=== PATIENT | female | born 1970 | race African-American/Black ===

== ENCOUNTER 2017-07-07 19:50 | Inpatient (IN) | payer OTHER ==
--- NOTE | 2017-07-07 19:57 | HP ---
COWS - Scale Resting Pulse: 0= [place] 80 or Below Sweatin=Flushed/Facial Moisture Restless Observation: 3= Extraneous Movement Pupil Size: 2= Moderately Dilated Bone or Joint Aches: 2= Severe Diffuse Aches Runny Nose/ Eye Tearin= Runny Nose/Eyes GI Upset > 30mins: 3= Vomiting/Diarrhea Tremor Observation: 2= Slight Tremor Visible Yawning Observation: 2= >3x During Session Anxiety or Irritability: 2=Irritable/Anxious Goose Flesh Skin: 0=Smooth Skin COWS Score: 20 CIWA Score - CIWA Score Nausea/Vomitin Muscle Tremors: 3 Anxiety: 3 Agitation: 3 Paroxysmal Sweats: 2 Orientation: 0-Oriented Tacttile Disturbances: 2-Mild Itch/Numbness/Burn Auditory Disturbances: 2-Mild Harshness/Frighten Visual Disturbances: 2-Mild Sensitivity Headache: 2-Mild CIWA-Ar Total Score: 22 Admission ROS BHS - HPI Chief Complaint: i am here need help to stop using heroin,cocaine,street methadone,marijuana Allergies/Adverse Reactions: Allergies Allergy/AdvReac Type Severity Reaction Status Date / Time Fish Containing Products Allergy Verified 07/07/17 20:03 fish Allergy Uncoded 07/07/17 20:05 seafood Allergy Uncoded 07/07/17 20:04 History of Present Illness: this 47 years old female with heroin,cocaine,street marijuana ,street methadone, alcohol,seeking detox,last treatment 2016 [facility] depression,insomnia nicotine dependence multiple admissions in detox longest period of sobriety 15 years Exam Limitations: No Limitations - Ebola screening Have you traveled outside of the country in the last 21 days: No - Review of Systems Constitutional: Chills, Diaphoresis, Loss of Appetite, Malaise, Night Sweats, Changes in sleep, Weakness, Unintentional Wgt. Loss EENT: reports: Tearing, Nose Congestion Respiratory: reports: No Symptoms reported Cardiac: reports: No Symptoms Reported GI: reports: Diarrhea, Nausea, Vomiting, Abdominal cramping Musculoskeletal: reports: Back Pain, Joint Pain, Muscle Pain, Joint Stiffness Integumentary: reports: Dryness Neuro: reports: Headache, Tremors Endocrine: reports: No Symptoms Reported Hematology: reports: No Symptoms Reported Psychiatric: reports: Anxious (insomnia), Depressed Patient History - Patient Medical History Hx Anemia: Yes (non compliant) Hx Asthma: No Hx Chronic Obstructive Pulmonary Disease (COPD): No Hx Cancer: No Hx Cardiac Disorders: No Hx Congestive Heart Failure: No Hx Hypertension: No Hx Hypercholesterolemia: No Hx Pacemaker: No HX Cerebrovascular Accident: No Hx Seizures: No Hx Dementia: No Hx Diabetes: No Hx Gastrointestinal Disorders: No Hx Liver Disease: No Hx Genitourinary Disorders: No Hx Sexually Transmitted Disorders: No Hx Renal Disease (ESRD): No Hx Thyroid Disease: No Hx Human Immunodeficiency Virus (HIV): No (last 01/12) Hx Hepatitis C: No Hx Depression: Yes (anxiety) Hx Suicide Attempt: Yes (hang herself since age of 21) Hx Bipolar Disorder: No Hx Schizophrenia: No Other Medical History: no suicidal,no homicidal - Patient Surgical History Hx Section: Yes (x2 last 17 years ago) - PPD History Documented Results: Negative w/o proof Implanted On Prior [facility] Admission?: No PPD to be Administered?: Yes - Reproductive History Patient is a Female of Child Bearing Age (11 -55 yrs old): Yes (06/30) Patient : No - Smoking Cessation Smoking history: Current every day smoker Have you smoked in the past 12 months: Yes Aproximately how many cigarettes per day: 10 Hx Chewing Tobacco Use: No Initiated information on smoking cessation: Yes 'Breaking Loose' booklet given: 07/07/17 - Substance & Tx. History Hx Alcohol Use: Yes Hx Substance Use: Yes Substance Use Type: Alcohol, Cocaine, Heroin, Marijuana Hx Substance Use Treatment: Yes ([facility] 2016) - Substances Abused Heroin Route: Inhalation Frequency: Daily Amount used: 8 bags Age of first use: 30 Date of Last Use: 07/06/17 Alcohol Route: Oral Frequency: Daily Amount used: 1 int of vodka/4 of 24 ozs of beer Age of first use: 15 Date of Last Use: 07/07/17 street methadone Route: Oral Frequency: Daily Amount used: 50 mgs Age of first use: 47 Date of Last Use: 07/06/17 Cocaine Route: Smoking Frequency: Daily Amount used: 100$ Age of first use: 15 Date of Last Use: 07/06/17 Marijuana/Hashish Route: Smoking Frequency: 1-2 times per week Amount used: 5$ Age of first use: 15 Date of Last Use: 08/07/17 Family Disease History - Family Disease History Family Disease History: Other: Father (alcohol,) Admission Physical Exam [facility] - Vital Signs Vital Signs: Vital Signs Temperature 98.1 F 07/07/17 20:07 Pulse Rate 60 07/07/17 20:07 Respiratory Rate 18 07/07/17 20:07 Blood Pressure 112/67 07/07/17 20:07 O2 Sat by Pulse Oximetry (%) - Physical General Appearance: Yes: Moderate Distress, Tremorous, Irritable, Sweating, Anxious HEENTM: Yes: Normal ENT Inspection, CRHIS, Pharynx Normal Respiratory: Yes: Lungs Clear, Normal Breath Sounds, No Respiratory Distress Neck: Yes: Within Normal Limits, Supple, Trachea in good position Breast: Yes: Breast Exam Deferred Cardiology: Yes: Within Normal Limits, Regular Rhythm, Regular Rate, S1, S2 Abdominal: Yes: Within Normal Limits, Normal Bowel Sounds, Non Tender, Flat, Soft Genitourinary: Yes: Within Normal Limits Back: Yes: Normal Inspection, Muscle Spasm Musculoskeletal: Yes: Within Normal Limits, Back pain, Joint Stiffness, Muscle Pain Extremities: Yes: Normal Range of Motion, Tremors Neurological: Yes: Within Normal Limits, bobbin drier II-XII NML intact, Fully Oriented, Alert, Motor Strength 5/5 Integumentary: Yes: Dry Lymphatic: Yes: Within Normal Limits - Diagnostic (1) Opioid dependence with withdrawal Current Visit: Yes Status: Acute (2) Alcohol dependence with uncomplicated withdrawal Current Visit: Yes Status: Acute (3) Cocaine dependence Current Visit: Yes Status: Acute (4) Cannabis dependence Current Visit: Yes Status: Acute (5) Anxiety and depression Current Visit: Yes Status: Acute (6) Insomnia Current Visit: Yes Status: Acute (7) Nicotine dependence Current Visit: Yes Status: Acute (8) Weight loss Current Visit: Yes Status: Acute (9) Anemia Current Visit: Yes Status: Acute Cleared for Admission [facility] - Detox or Rehab [facility] Level of Care: Medically Managed Detox Regimen/Protocol: Methadone/Librium
[2017-07-07 20:10] VITALS: BMI 22.3
[2017-07-07] MEDS ORDERED: MAG HYDROX/AL HYDROX/SIMETH 30 ML UNIT-DOSE CUP PO PRN (20:29)
[2017-07-07] MEDS ORDERED: diphenhydrAMINE HCL 50 MG CAPSULE PO PRN (20:29)
[2017-07-07] MEDS ORDERED: P-EPHED 60MG/TRIPROLIDI 2.5MG TABLET PO PRN (20:29)
[2017-07-07] MEDS ORDERED: chlordiazePOXIDE HCL 25 MG CAPSULE PO PRN (20:29)
[2017-07-07] MEDS ORDERED: IBUPROFEN 400 MG TABLET (FP) PO PRN (20:29)
[2017-07-07] MEDS ORDERED: METHADONE HCL 10 MG TABLET (FOR DETOX USE ONLY) PO ONE ×2 (20:29→23:00)
[2017-07-07] MEDS ORDERED: MENTHOL/PHENOL 1 EACH UD MM PRN (20:29)
[2017-07-07] MEDS ORDERED: MAGNESIUM HYDROX 2400MG/30ML ORAL SUSPENSION 30 ML CUP PO PRN (20:29)
[2017-07-07] MEDS ORDERED: MAGNESIUM CITRATE 300 ML BOTTLE PO PRN (20:29)
[2017-07-07] MEDS ORDERED: guaiFENesin/D-METHORPHAN HB 10 ML UNIT-DOSE CUPS PO PRN (20:29)
[2017-07-07] MEDS ORDERED: ACETAMINOPHEN 325 MG TABLET (FP) PO PRN (20:29)
[2017-07-07] MEDS ORDERED: chlordiazePOXIDE HCL 25 MG CAPSULE PO ONE (20:29)
[2017-07-07] MEDS ORDERED: LOPERAMIDE HCL 2 MG CAPSULE PO PRN (20:29)
[2017-07-07] MEDS ORDERED: hydrOXYzine PAMOATE 25 MG CAPSULE (FP) PO PRN (20:29)
[2017-07-07] MEDS: THIAMINE HCL 100 MG TABLET (FP) PO SCH (21:56)
[2017-07-07] MEDS: CYCLOBENZAPRINE HCL 10 MG TABLET (FP) PO PRN (21:58)
[2017-07-07] MEDS: chlordiazePOXIDE HCL 25 MG CAPSULE PO SCH (22:00)
[2017-07-07] MEDS: cloNIDine HCL 0.1 MG TABLET PO SCH (22:01)
[2017-07-08] MEDS: chlordiazePOXIDE HCL 25 MG CAPSULE PO SCH ×4 (05:33→22:10)
[2017-07-08] MEDS: CYCLOBENZAPRINE HCL 10 MG TABLET (FP) PO PRN ×2 (05:34→17:39)
[2017-07-08] MEDS ORDERED: METHADONE HCL 10 MG TABLET (FOR DETOX USE ONLY) PO SCH (10:00)
[2017-07-08] MEDS: PRENATAL VITAMINS W/ FOLIC ACID TABLET (FP) PO SCH (10:16)
[2017-07-08] MEDS: cloNIDine HCL 0.1 MG TABLET PO SCH ×2 (10:17→22:10)
[2017-07-08 10:30] LABS: ALBUMIN 3.3 g/dl (3.4-5.0); ANION GAP 6 (8-16); CO2 28 mmol/L (21-32); GLUCOSE,RANDOM 89 mg/dL (74-106)
[2017-07-08 10:33] LABS: ALK PHOS 81 U/L (45-117); BILIRUBIN,TOTAL 0.1 mg/dL (0.2-1.0); CALCIUM 9.2 mg/dL (8.5-10.1); CREATININE 0.8 mg/dL (0.55-1.02); SGOT/AST 14 U/L (15-37); SGPT/ALT 22 U/L (12-78); TOT PROT 6.5 g/dl (6.4-8.2)
[2017-07-08 10:49] LABS: MCH 33.8 pg (25.7-33.7); MEAN CELL VOLUME 102.4 fl (80-96); MEAN PLT VOLUME 8.3 fl (7.5-11.1); PLATELET COUNT 235 K/MM3 (134-434); RDW 13.1 % (11.6-15.6); WHITE BLOOD COUNT 6.3 K/mm3 (4.0-10.0)
[2017-07-08 11:52] LABS: PH,URINE 5.5 (5.0-8.0); URINE APPEARANCE CLEAR; URINE BILIRUBIN NEGATIVE (NEGATIVE); URINE BLOOD NEGATIVE (NEGATIVE); URINE COLOR LT. YELLOW; URINE GLUCOSE (UA) NEGATIVE (NEGATIVE); URINE KETONE TRACE (NEGATIVE); URINE LEUK ESTERASE NEGATIVE (NEGATIVE); URINE NITRITE NEGATIVE (NEGATIVE); URINE PROTEIN NEGATIVE (NEGATIVE); URINE UROBILINOGEN 0.2 mg/dL (0.2-1.0)
--- NOTE | 2017-07-08 13:45 | PN ---
[facility] CIWA - CIWA Score Nausea/Vomitin-No Nausea/No Vomiting Muscle Tremors: 3 Anxiety: 4-Mod. Anxious/Guarded Agitation: 3 Paroxysmal Sweats: 3 Orientation: 0-Oriented Tacttile Disturbances: 0-None Auditory Disturbances: 0-None Visual Disturbances: 0-None Headache: 0-None Present CIWA-Ar Total Score: 13 BHS COWS - Scale Resting Pulse: 0= [place] 80 or Below Sweatin= Chills/Flushing Restless Observation: 1= Difficult to Sit Still Pupil Size: 0= Normal to Room Light Bone or Joint Aches: 1= Mild Discomfort Runny Nose/ Eye Tearin= Runny Nose/Eyes GI Upset > 30mins: 2= Nausea/Diarrhea Tremor Observation of Outstretched Hands: 2= Slight Tremor Visible Yawning Observation: 1= 1-2x During Session Anxiety or Irritability: 2=Irritable/Anxious Goose Flesh Skin: 0=Smooth Skin COWS Score: 12 [facility] Progress Note (SOAP) Subjective: Sweating,anxiety,tremors,interrupted sleep,restless Objective: 07/08/17 13:44 Vital Signs - 8 hr 07/08/17 07/08/17 06:00 10:00 Temperature 96.4 F L 96.6 F L Pulse Rate 58 L 53 L Respiratory 16 18 Rate Blood Pressure 106/60 106/55 Laboratory Last Values WBC 6.3 K/mm3 (4.0-10.0) 07/08/17 08:00 RBC 4.10 M/mm3 (3.60-5.2) 07/08/17 08:00 Hgb 13.9 GM/dL (10.7-15.3) 07/08/17 08:00 Hct 42.0 % (32.4-45.2) 07/08/17 08:00 MCV 102.4 fl (80-96) H 07/08/17 08:00 MCH 33.8 pg (25.7-33.7) H 07/08/17 08:00 MCHC 33.0 g/dl (32.0-36.0) 07/08/17 08:00 RDW 13.1 % (11.6-15.6) 07/08/17 08:00 Plt Count 235 K/MM3 (134-434) 07/08/17 08:00 MPV 8.3 fl (7.5-11.1) 07/08/17 08:00 Sodium 140 mmol/L (136-145) 07/08/17 08:00 Potassium 4.1 mmol/L (3.5-5.1) 07/08/17 08:00 Chloride 106 mmol/L (98-107) 07/08/17 08:00 Carbon Dioxide 28 mmol/L (21-32) 07/08/17 08:00 Anion Gap 6 (8-16) L 07/08/17 08:00 BUN 13 mg/dL (7-18) 07/08/17 08:00 Creatinine 0.8 mg/dL (0.55-1.02) 07/08/17 08:00 Creat Clearance w eGFR > 60 (>60) 07/08/17 08:00 Random Glucose 89 mg/dL (74-106) 07/08/17 08:00 Calcium 9.2 mg/dL (8.5-10.1) 07/08/17 08:00 Total Bilirubin 0.1 mg/dL (0.2-1.0) L 07/08/17 08:00 AST 14 U/L (15-37) L 07/08/17 08:00 ALT 22 U/L (12-78) 07/08/17 08:00 Alkaline Phosphatase 81 U/L (45-117) 07/08/17 08:00 Total Protein 6.5 g/dl (6.4-8.2) 07/08/17 08:00 Albumin 3.3 g/dl (3.4-5.0) L 07/08/17 08:00 Urine Color Lt. yellow 07/08/17 09:20 Urine Appearance Clear 07/08/17 09:20 Urine pH 5.5 (5.0-8.0) 07/08/17 09:20 Urine Protein Negative (NEGATIVE) 07/08/17 09:20 Urine Glucose (UA) Negative (NEGATIVE) 07/08/17 09:20 Urine Ketones Trace (NEGATIVE) H 07/08/17 09:20 Urine Blood Negative (NEGATIVE) 07/08/17 09:20 Urine Nitrite Negative (NEGATIVE) 07/08/17 09:20 Urine Bilirubin Negative (NEGATIVE) 07/08/17 09:20 Urine Urobilinogen 0.2 mg/dL (0.2-1.0) 07/08/17 09:20 Ur Leukocyte Esterase Negative (NEGATIVE) 07/08/17 09:20 RPR Titer Nonreactive (NONREACTIVE) 07/08/17 08:00 labs noted Assessment: 07/08/17 13:45 Withdrawal sx. Plan: Continue detox
--- NOTE | 2017-07-08 13:53 | EKG ---
Test Reason : Blood Pressure : / mmHG Vent. Rate : 052 BPM Atrial Rate : 052 BPM P-R Int : 162 ms QRS Dur : 090 ms QT Int : 442 ms P-R-T Axes : 074 078 051 degrees QTc Int : 411 ms SINUS BRADYCARDIA POSSIBLE LEFT ATRIAL ENLARGEMENT NONSPECIFIC T WAVE ABNORMALITY ABNORMAL ECG NO PREVIOUS ECGS AVAILABLE CLINICAL CORRELATION IS RECOMMENDED Confirmed by KIA CRENSHAW, BELEM ([id number]) on 07/08/2017 1:53:45 PM Referred By: Raymond Harvey Confirmed By:BELEM ADAM MD
[2017-07-08] MEDS: THIAMINE HCL 100 MG TABLET (FP) PO SCH (22:10)
[2017-07-09] MEDS: chlordiazePOXIDE HCL 25 MG CAPSULE PO SCH ×3 (05:45→17:26)
--- NOTE | 2017-07-09 09:04 | CONSULT ---
[facility] Psychiatric Consult - Data Date of interview: 07/09/17 Admission source: [facility] Identifying data: Dontrell is 47 years old female with psychiatric hospitalization history, intoxicated with: Alcohol Cannabis, OIpioids and Nicotine Substance Abuse History: - Smoking Cessation. Smoking history: Current every day smoker. Have you smoked in the past 12 months: Yes. Aproximately how many cigarettes per day: 10. Hx Chewing Tobacco Use: No. Initiated information on smoking cessation: Yes. 'Breaking Loose' booklet given: 07/07/17. - Substance & Tx. History. Hx Alcohol Use: Yes. Hx Substance Use: Yes. Substance Use Type : Alcohol, Cocaine, Heroin, Marijuana. Hx Substance Use Treatment: Yes ([facility] 2016). - Substances Abused. Heroin. Route: Inhalation. Frequency : Daily. Amount used: 8 bags. Age of first use: 30. Date of Last Use: . Alcohol. Route: Oral. Frequency: Daily. Amount used: 1 int of vodka/ 4 of 24 ozs of beer. Age of first use: 15. Date of Last Use: 07/07/17. street methadone. Route: Oral. Frequency: Daily. Amount used: 50 mgs. Age of first use: 47. Date of Last Use: 07/06/17. Cocaine. Route: Smoking. Frequency: Daily. Amount used: 100$. Age of first use: 15. Date of Last Use: 07/06/17. Marijuana/Hashish. Route: Smoking. Frequency: 1-2 times per week. Amount used: 5$. Age of first use: 15. Date of Last Use: 07/02/17 Medical History: Asthma Weight loss history Psychiatric History: Patioent reprots history of anxiety and depression, reports taking prior to admission: Seroquel 150mg po qhs Physical/Sexual Abuse/Trauma History: Denies Additional Comment: Seroquel 150mg po qhs Mental Status Exam - Mental Status Exam Alert and Oriented to: Person Cognitive Function: Fair Patient Appearance: Unkempt Mood: Sad Affect: Flat Patient Behavior: Sedated Speech Pattern: Delayed Voice Loudness: Mildly Soft/Quiet Thought Process: Circumstantial Thought Disorder: Being Controlled Hallucinations: Denies Suicidal Ideation: Denies Homicidal Ideation: Denies Insight/Judgement: Fair Sleep: Difficulty falling asleep Appetite: Weight loss Muscle strength/Tone: Mild Hypotonicity Gait/Station: Shuffling Additional Comments: Seroquel 150mg po qhs Psychiatric Findings - Problem List (Mobile 1, 2,3) (1) Alcohol dependence with uncomplicated withdrawal Current Visit: Yes Status: Acute (2) Anxiety and depression Current Visit: Yes Status: Acute (3) Cannabis dependence Current Visit: Yes Status: Acute (4) Cocaine dependence Current Visit: Yes Status: Acute (5) Nicotine dependence Current Visit: Yes Status: Acute (6) Opioid dependence with withdrawal Current Visit: Yes Status: Acute (7) Drug-induced mood disorder Current Visit: Yes Status: Acute - Initial Treatment Plan Initial Treatment Plan: Seroquel 150mg po qhs
[2017-07-09] MEDS: PRENATAL VITAMINS W/ FOLIC ACID TABLET (FP) PO SCH (10:10)
[2017-07-09] MEDS: cloNIDine HCL 0.1 MG TABLET PO SCH ×2 (10:11→22:16)
[2017-07-09] MEDS: METHADONE HCL 5 MG TABLET (FOR DETOX USE ONLY) PO SCH (10:11)
[2017-07-09] MEDS: CYCLOBENZAPRINE HCL 10 MG TABLET (FP) PO PRN (10:15)
--- NOTE | 2017-07-09 12:01 | PN ---
S CIWA - CIWA Score Nausea/Vomitin Muscle Tremors: 3 Anxiety: 3 Agitation: 2 Paroxysmal Sweats: 1-Minimal Palms Moist Orientation: 0-Oriented Tacttile Disturbances: 1-Very Mild Itch/Numbness Auditory Disturbances: 1-Very Mild Visual Disturbances: 1-Very Mild Sensitivity Headache: 2-Mild CIWA-Ar Total Score: 17 BHS COWS - Scale Resting Pulse: 0= [place] 80 or Below Sweatin= Chills/Flushing Restless Observation: 3= Extraneous Movement Pupil Size: 1= Pupils >than Normal Bone or Joint Aches: 2= Severe Diffuse Aches Runny Nose/ Eye Tearin= Runny Nose/Eyes GI Upset > 30mins: 2= Nausea/Diarrhea Tremor Observation of Outstretched Hands: 2= Slight Tremor Visible Yawning Observation: 1= 1-2x During Session Anxiety or Irritability: 2=Irritable/Anxious Goose Flesh Skin: 0=Smooth Skin COWS Score: 16 S Progress Note (SOAP) Subjective: ALERT,IRRITABLE,ANXIOUS,INTERRUPTED SLEEP,TREMOR,PAIN IN THE BODY Objective: 07/09/17 12:05 Vital Signs Temperature 97.2 F L 07/09/17 10:00 Pulse Rate 62 07/09/17 10:00 Respiratory Rate 16 07/09/17 10:00 Blood Pressure 113/54 07/09/17 10:00 O2 Sat by Pulse Oximetry (%) Laboratory Last Values WBC 6.3 K/mm3 (4.0-10.0) 07/08/17 08:00 RBC 4.10 M/mm3 (3.60-5.2) 07/08/17 08:00 Hgb 13.9 GM/dL (10.7-15.3) 07/08/17 08:00 Hct 42.0 % (32.4-45.2) 07/08/17 08:00 MCV 102.4 fl (80-96) H 07/08/17 08:00 MCH 33.8 pg (25.7-33.7) H 07/08/17 08:00 MCHC 33.0 g/dl (32.0-36.0) 07/08/17 08:00 RDW 13.1 % (11.6-15.6) 07/08/17 08:00 Plt Count 235 K/MM3 (134-434) 07/08/17 08:00 MPV 8.3 fl (7.5-11.1) 07/08/17 08:00 Sodium 140 mmol/L (136-145) 07/08/17 08:00 Potassium 4.1 mmol/L (3.5-5.1) 07/08/17 08:00 Chloride 106 mmol/L (98-107) 07/08/17 08:00 Carbon Dioxide 28 mmol/L (21-32) 07/08/17 08:00 Anion Gap 6 (8-16) L 07/08/17 08:00 BUN 13 mg/dL (7-18) 07/08/17 08:00 Creatinine 0.8 mg/dL (0.55-1.02) 07/08/17 08:00 Creat Clearance w eGFR > 60 (>60) 07/08/17 08:00 Random Glucose 89 mg/dL (74-106) 07/08/17 08:00 Calcium 9.2 mg/dL (8.5-10.1) 07/08/17 08:00 Total Bilirubin 0.1 mg/dL (0.2-1.0) L 07/08/17 08:00 AST 14 U/L (15-37) L 07/08/17 08:00 ALT 22 U/L (12-78) 07/08/17 08:00 Alkaline Phosphatase 81 U/L (45-117) 07/08/17 08:00 Total Protein 6.5 g/dl (6.4-8.2) 07/08/17 08:00 Albumin 3.3 g/dl (3.4-5.0) L 07/08/17 08:00 Urine Color Lt. yellow 07/08/17 09:20 Urine Appearance Clear 07/08/17 09:20 Urine pH 5.5 (5.0-8.0) 07/08/17 09:20 Ur Specific [place] >= 1.030 (1.005-1.025) H 07/08/17 09:20 Urine Protein Negative (NEGATIVE) 07/08/17 09:20 Urine Glucose (UA) Negative (NEGATIVE) 07/08/17 09:20 Urine Ketones Trace (NEGATIVE) H 07/08/17 09:20 Urine Blood Negative (NEGATIVE) 07/08/17 09:20 Urine Nitrite Negative (NEGATIVE) 07/08/17 09:20 Urine Bilirubin Negative (NEGATIVE) 07/08/17 09:20 Urine Urobilinogen 0.2 mg/dL (0.2-1.0) 07/08/17 09:20 Ur Leukocyte Esterase Negative (NEGATIVE) 07/08/17 09:20 RPR Titer Nonreactive (NONREACTIVE) 07/08/17 08:00 Assessment: 07/09/17 12:05 WITHDRAWAL SYMPTOM Plan: CONTINUE DETOX
[2017-07-09] MEDS: THIAMINE HCL 100 MG TABLET (FP) PO SCH (22:16)
[2017-07-09] MEDS: chlordiazePOXIDE 5 MG CAPSULE PO SCH (22:16)
[2017-07-09] MEDS: QUEtiapine FUMARATE 50 MG TABLET PO SCH (22:16)
[2017-07-10] MEDS: chlordiazePOXIDE 5 MG CAPSULE PO SCH ×3 (05:17→17:25)
[2017-07-10] MEDS: CYCLOBENZAPRINE HCL 10 MG TABLET (FP) PO PRN ×2 (05:42→17:25)
--- NOTE | 2017-07-10 09:48 | PN ---
[facility] Progress Note (SOAP) Subjective: ALERT,IRRITABLE,ANXIOUS,INTERRUPTED SLEEP,PAIN IN THE BODY Objective: 07/10/17 09:47 Vital Signs Temperature 98.1 F 07/10/17 06:20 Pulse Rate 61 07/10/17 06:20 Respiratory Rate 16 07/10/17 06:20 Blood Pressure 101/54 07/10/17 06:20 O2 Sat by Pulse Oximetry (%) Assessment: 07/10/17 09:47 WITHDRAWAL SYMPTOM Plan: CONTINUE DETOX
[2017-07-10] MEDS: PRENATAL VITAMINS W/ FOLIC ACID TABLET (FP) PO SCH (10:19)
[2017-07-10] MEDS: METHADONE HCL 5 MG TABLET (FOR DETOX USE ONLY) PO SCH (10:19)
[2017-07-10] MEDS: cloNIDine HCL 0.1 MG TABLET PO SCH ×2 (10:19→22:21)
[2017-07-10] MEDS: THIAMINE HCL 100 MG TABLET (FP) PO SCH (22:22)
[2017-07-10] MEDS: QUEtiapine FUMARATE 50 MG TABLET PO SCH (22:22)
[2017-07-10] MEDS: chlordiazePOXIDE HCL 10 MG CAPSULE PO SCH (22:22)
[2017-07-11] MEDS: chlordiazePOXIDE HCL 10 MG CAPSULE PO SCH ×3 (05:17→17:30)
[2017-07-11] MEDS: CYCLOBENZAPRINE HCL 10 MG TABLET (FP) PO PRN ×2 (05:19→22:17)
--- NOTE | 2017-07-11 09:50 | PN ---
S Progress Note (SOAP) Subjective: ALERT,IRRITABLE,ANXIOUS,INTERRUPTED SLEEP Objective: 07/11/17 09:49 Vital Signs Temperature 96.4 F L 07/11/17 06:11 Pulse Rate 66 07/11/17 06:11 Respiratory Rate 18 07/11/17 06:11 Blood Pressure 101/60 07/11/17 06:11 O2 Sat by Pulse Oximetry (%) Assessment: 07/11/17 09:49 WITHDRAWAL SYMPTOM Plan: CONTINUE DETOX,DISCHARGE IN AM
[2017-07-11] MEDS ORDERED: METHADONE HCL 10 MG TABLET (FOR DETOX USE ONLY) PO SCH (10:00)
[2017-07-11] MEDS: cloNIDine HCL 0.1 MG TABLET PO SCH ×2 (10:26→22:17)
[2017-07-11] MEDS: PRENATAL VITAMINS W/ FOLIC ACID TABLET (FP) PO SCH (10:26)
[2017-07-11] MEDS: THIAMINE HCL 100 MG TABLET (FP) PO SCH (22:15)
[2017-07-11] MEDS: QUEtiapine FUMARATE 50 MG TABLET PO SCH (22:16)
[2017-07-12] MEDS ORDERED: METHADONE HCL 5 MG TABLET (FOR DETOX USE ONLY) PO SCH (06:00)
[2017-07-12] MEDS: CYCLOBENZAPRINE HCL 10 MG TABLET (FP) PO PRN (06:11)
[2017-07-12 06:12] VITALS: TEMP 98.1
--- NOTE | 2017-07-12 08:16 | DS ---
[facility] Detox Discharge Summary Admission Date: 07/07/17 Discharge Date: 07/12/17 - History Present History: Alcohol Dependence, Cannabis Dependence, Cocaine Dependence, Opioid Dependence Pertinent Past History: NICOTINE DEPENDENCE INSOMNIA WEIGHT LOSS ANXIETY AND DEPRESSION - Physical Exam Results Vital Signs: Vital Signs Temperature 98.1 F 07/12/17 06:12 Pulse Rate 65 07/12/17 06:12 Respiratory Rate 16 07/12/17 06:12 Blood Pressure 102/59 07/12/17 06:12 O2 Sat by Pulse Oximetry (%) Pertinent Admission Physical Exam Findings: WITHDRAWAL SYMPTOM - Treatment Hospital Course: Detox Protocol Followed, Detoxed Safely, Responded well, Discharged Condition Good Patient has Accepted a Rehab Referral to: [facility] - Medication Discharge Medications: Ambulatory Orders Quetiapine Fumarate [Seroquel] 150 mg PO HS 07/07/17 Quetiapine Fumarate [Seroquel] 150 mg PO HS #30 tab 07/09/17 - Diagnosis (1) Opioid dependence with withdrawal Current Visit: Yes Status: Acute (2) Alcohol dependence with uncomplicated withdrawal Current Visit: Yes Status: Acute (3) Cocaine dependence Current Visit: Yes Status: Acute (4) Cannabis dependence Current Visit: Yes Status: Acute (5) Anxiety and depression Current Visit: Yes Status: Acute (6) Insomnia Current Visit: Yes Status: Acute (7) Nicotine dependence Current Visit: Yes Status: Acute (8) Weight loss Current Visit: Yes Status: Acute (9) Anemia Current Visit: No Status: Inactive (10) Drug-induced mood disorder Current Visit: Yes Status: Acute - AMA Did Patient Leave Against Medical Advice: No
[2017-07-12] MEDS: PRENATAL VITAMINS W/ FOLIC ACID TABLET (FP) PO SCH (10:14)
[2017-07-12 10:16] VITALS: PULSE 86
[2017-07-12] MEDS: cloNIDine HCL 0.1 MG TABLET PO SCH (10:16)
[2017-07-12 10:18] VITALS: BP 121/69
== END 2017-07-12 13:42 | disposition other institution (70) | DRG 773 ==
LOC: YASAS 19:50 → Y6N 20:44
PROVIDERS: ADMIT Internal Medicine; ATTEND Internal Medicine
PROC: HZ2ZZZZ Detoxification Services for Substance Abuse Treatment (ICD-10-PCS; principal; 2017-07-07)
DX: F11.23 Opioid dependence with withdrawal (principal); F10.230 Alcohol dependence with withdrawal, uncomplicated; F14.20 Cocaine dependence, uncomplicated; F12.20 Cannabis dependence, uncomplicated; F17.210 Nicotine dependence, cigarettes, uncomplicated; F41.8 Other specified anxiety disorders; F19.24 Other psychoactive substance dependence with psychoactive substance-induced mood disorder; D64.9 Anemia, unspecified; G47.00 Insomnia, unspecified; Z91.013 Allergy to seafood; Z87.898 Personal history of other specified conditions; Z91.14 Patient's other noncompliance with medication regimen; Z91.5 Personal history of self-harm; Z59.0 Homelessness
CPT/HCPCS: 36415; 80053; 81003; 85027; 86593; 93005; 93010

== ENCOUNTER 2017-07-12 14:12 | Inpatient (IN) | payer OTHER ==
[2017-07-12 14:45] VITALS: BMI 25.4
[2017-07-12] MEDS ORDERED: MAGNESIUM CITRATE 300 ML BOTTLE PO PRN (15:17)
[2017-07-12] MEDS ORDERED: IBUPROFEN 400 MG TABLET (FP) PO PRN (15:17)
[2017-07-12] MEDS ORDERED: MENTHOL/PHENOL 1 EACH UD MM PRN (15:17)
[2017-07-12] MEDS ORDERED: MAG HYDROX/AL HYDROX/SIMETH 30 ML UNIT-DOSE CUP PO PRN (15:17)
[2017-07-12] MEDS ORDERED: LOPERAMIDE HCL 2 MG CAPSULE PO PRN (15:17)
[2017-07-12] MEDS ORDERED: P-EPHED 60MG/TRIPROLIDI 2.5MG TABLET PO PRN (15:17)
[2017-07-12] MEDS ORDERED: ACETAMINOPHEN 325 MG TABLET (FP) PO PRN (15:17)
[2017-07-12] MEDS ORDERED: MAGNESIUM HYDROX 2400MG/30ML ORAL SUSPENSION 30 ML CUP PO PRN (15:17)
[2017-07-12] MEDS ORDERED: diphenhydrAMINE HCL 50 MG CAPSULE PO PRN (15:17)
[2017-07-12] MEDS ORDERED: guaiFENesin/D-METHORPHAN HB 10 ML UNIT-DOSE CUPS PO PRN (15:17)
--- NOTE | 2017-07-12 15:23 | HP ---
[facility] Rehab Assess/Revision - Admission History Admitted to Rehab from: [facility] [place] Date of Admission to Rehab: 07/12/17 - Vital signs Vital Signs: Vital Signs Period Temp Pulse Resp BP Sys/Kelley Pulse Ox Last 24 Hr 98.5 F 83 20 109/74 - Findings Detox History & Physical reviewed: Yes Concur with findings: Yes Comments/Additional Findings: for rehab as protocol
[2017-07-12] MEDS: THIAMINE HCL 100 MG TABLET (FP) PO SCH (21:13)
[2017-07-12] MEDS: QUEtiapine FUMARATE 50 MG TABLET PO SCH (21:13)
[2017-07-12] MEDS: CYCLOBENZAPRINE HCL 10 MG TABLET (FP) PO SCH (21:14)
[2017-07-12] MEDS: cloNIDine HCL 0.1 MG TABLET PO SCH (21:14)
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
[2017-07-13] MEDS: PRENATAL VITAMINS W/ FOLIC ACID TABLET (FP) PO SCH (10:16)
[2017-07-13] MEDS: CYCLOBENZAPRINE HCL 10 MG TABLET (FP) PO SCH ×2 (10:16→21:59)
[2017-07-13] MEDS: cloNIDine HCL 0.1 MG TABLET PO SCH ×2 (10:16→21:58)
[2017-07-13] MEDS: hydrOXYzine PAMOATE 25 MG CAPSULE (FP) PO PRN ×2 (10:17→16:36)
[2017-07-13] MEDS: THIAMINE HCL 100 MG TABLET (FP) PO SCH (21:58)
[2017-07-13] MEDS: QUEtiapine FUMARATE 50 MG TABLET PO SCH (21:58)
[2017-07-14] MEDS: hydrOXYzine PAMOATE 25 MG CAPSULE (FP) PO PRN ×3 (02:56→14:48)
[2017-07-14 06:48] VITALS: TEMP 97.8
[2017-07-14 09:56] VITALS: BP 126/65; PULSE 96
[2017-07-14] MEDS: CYCLOBENZAPRINE HCL 10 MG TABLET (FP) PO SCH (10:12)
[2017-07-14] MEDS: PRENATAL VITAMINS W/ FOLIC ACID TABLET (FP) PO SCH (10:12)
[2017-07-14] MEDS: cloNIDine HCL 0.1 MG TABLET PO SCH (10:12)
--- NOTE | 2017-07-14 20:15 | PN ---
[facility] Progress Note Note: patient did not want to complete treatment,seen by counselor,left ama, psychiatrist log operations coordinator notified by nurse
== END 2017-07-14 16:50 | disposition left against medical advice (07) | DRG 770 ==
LOC: YASAS 14:12 → Y3W 14:13
PROVIDERS: ADMIT Psychiatry & Neurology Psychiatry; ATTEND Psychiatry & Neurology Psychiatry
PROC: HZ42ZZZ Group Counseling for Substance Abuse Treatment, Cognitive-Behavioral (ICD-10-PCS; principal; 2017-07-12)
DX: F11.20 Opioid dependence, uncomplicated (principal); F10.20 Alcohol dependence, uncomplicated; F14.20 Cocaine dependence, uncomplicated; F12.20 Cannabis dependence, uncomplicated; F17.210 Nicotine dependence, cigarettes, uncomplicated; F20.9 Schizophrenia, unspecified; D64.9 Anemia, unspecified; M54.5 Low back pain; G89.29 Other chronic pain; Z59.0 Homelessness

== ENCOUNTER 2017-10-06 11:26 | Inpatient (IN) | payer OTHER ==
[2017-10-06] MEDS ORDERED: MAG HYDROX/AL HYDROX/SIMETH 30 ML UNIT-DOSE CUP PO PRN (12:28)
[2017-10-06] MEDS ORDERED: P-EPHED 60MG/TRIPROLIDI 2.5MG TABLET PO PRN (12:28)
[2017-10-06] MEDS ORDERED: IBUPROFEN 400 MG TABLET (FP) PO PRN (12:28)
[2017-10-06] MEDS ORDERED: guaiFENesin/D-METHORPHAN HB 10 ML UNIT-DOSE CUPS PO PRN (12:28)
[2017-10-06] MEDS ORDERED: ACETAMINOPHEN 325 MG TABLET (FP) PO PRN (12:28)
[2017-10-06] MEDS ORDERED: MAGNESIUM CITRATE 300 ML BOTTLE PO PRN (12:28)
[2017-10-06] MEDS ORDERED: MENTHOL/PHENOL 1 EACH UD MM PRN (12:28)
[2017-10-06] MEDS ORDERED: LOPERAMIDE HCL 2 MG CAPSULE PO PRN (12:28)
[2017-10-06] MEDS ORDERED: MAGNESIUM HYDROX 2400MG/30ML ORAL SUSPENSION 30 ML CUP PO PRN (12:28)
--- NOTE | 2017-10-06 12:30 | HP ---
CARMINE CRENSHAW Rehab Assess/Revision - Admission History Admitted to Rehab from: [facility] [place] Date of Admission to Rehab: 1`12/06/16 - Vital signs Vital Signs: Vital Signs Period Temp Pulse Resp BP Sys/Kelley Pulse Ox Last 24 Hr 98.2 F 83 18 110/68 - Findings Detox History & Physical reviewed: Yes Concur with findings: Yes Comments/Additional Findings: for rehab as protocol Inpatient Rehab Admission - Initial Determination Are CD services needed?: Yes Free of communicable disease: Yes Not in need of hospitalization: Yes - Rehab Admission Criteria Previous failed treatment: Yes Poor recovery environment: Yes Comorbidities: Yes Patient is meeting Inpatient Rehab admission criteria:: Yes
[2017-10-06] MEDS ORDERED: QUEtiapine FUMARATE 100 MG TABLET (FP) PO SCH ×2 (14:45→15:00)
[2017-10-06] MEDS: THIAMINE HCL 100 MG TABLET (FP) PO SCH (21:43)
[2017-10-06] MEDS: QUEtiapine FUMARATE 100 MG TABLET (FP) PO SCH (21:43)
[2017-10-07] MEDS: hydrOXYzine PAMOATE 50 MG CAPSULE (FP) PO PRN (10:12)
[2017-10-07] MEDS: PRENATAL VITAMINS W/ FOLIC ACID TABLET (FP) PO SCH (10:12)
[2017-10-07] MEDS ORDERED: cloNIDine HCL 0.1 MG TABLET PO ONE (15:56)
[2017-10-07] MEDS: cloNIDine HCL 0.1 MG TABLET PO SCH ×2 (18:16→21:50)
[2017-10-07] MEDS: CYCLOBENZAPRINE HCL 10 MG TABLET (FP) PO PRN (18:16)
[2017-10-07] MEDS ORDERED: TRIMETHOBENZAMIDE HCL 200MG/2ML INJ IM PRN (21:30)
[2017-10-07] MEDS: QUEtiapine FUMARATE 100 MG TABLET (FP) PO SCH (21:50)
[2017-10-07] MEDS: THIAMINE HCL 100 MG TABLET (FP) PO SCH (21:50)
[2017-10-08] MEDS: CYCLOBENZAPRINE HCL 10 MG TABLET (FP) PO PRN (08:32)
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
[2017-10-08] MEDS: PRENATAL VITAMINS W/ FOLIC ACID TABLET (FP) PO SCH (10:37)
[2017-10-08] MEDS: cloNIDine HCL 0.1 MG TABLET PO SCH ×2 (10:38→21:40)
[2017-10-08] MEDS: buPROPion HCL 100 MG TABLET PO SCH (10:39)
--- NOTE | 2017-10-08 12:35 | PN ---
BHS Progress Note (SOAP) Subjective: c/o migraines, continued opioid withdrawal sx unrelieved by syptomatic medications requesting suboxone maintenance treatment Objective: 10/08/17 12:34 Vital Signs 10/08/17 10/08/17 07:13 09:17 Temperature 98.1 F Pulse Rate 77 93 H Respiratory 16 18 Rate Blood Pressure 106/69 108/71 labs reviewed Assessment: 10/08/17 12:34 opioid withdrawal sx Plan: start suboxone 2mg, will adjust dose when patient has outpatient provider and appointment for discharge planning, nursing aware, risks and benefits of suboxone discusssed
[2017-10-08] MEDS: BUPRENORPHINE/NALOXONE 2 MG/0.5 MG FILM PACKET SL SCH (15:22)
[2017-10-08] MEDS: QUEtiapine FUMARATE 200 MG TABLET PO SCH (21:40)
[2017-10-08] MEDS: THIAMINE HCL 100 MG TABLET (FP) PO SCH (21:40)
[2017-10-09] MEDS: cloNIDine HCL 0.1 MG TABLET PO SCH ×2 (10:28→21:43)
[2017-10-09] MEDS: BUPRENORPHINE/NALOXONE 2 MG/0.5 MG FILM PACKET SL SCH (10:29)
[2017-10-09] MEDS: PRENATAL VITAMINS W/ FOLIC ACID TABLET (FP) PO SCH (10:29)
[2017-10-09] MEDS: buPROPion HCL 100 MG TABLET PO SCH (10:29)
[2017-10-09] MEDS: QUEtiapine FUMARATE 200 MG TABLET PO SCH (21:43)
[2017-10-09] MEDS: THIAMINE HCL 100 MG TABLET (FP) PO SCH (21:44)
[2017-10-09] MEDS: CYCLOBENZAPRINE HCL 10 MG TABLET (FP) PO PRN (21:45)
[2017-10-10] MEDS: PRENATAL VITAMINS W/ FOLIC ACID TABLET (FP) PO SCH (10:44)
[2017-10-10] MEDS: cloNIDine HCL 0.1 MG TABLET PO SCH ×2 (10:44→21:49)
[2017-10-10] MEDS: buPROPion HCL 100 MG TABLET PO SCH (10:44)
[2017-10-10] MEDS: BUPRENORPHINE/NALOXONE 2 MG/0.5 MG FILM PACKET SL SCH (10:47)
[2017-10-10] MEDS ORDERED: BUPRENORPHINE/NALOXONE 2 MG/0.5 MG FILM PACKET SL SCH (10:50)
[2017-10-10] MEDS: THIAMINE HCL 100 MG TABLET (FP) PO SCH (21:49)
[2017-10-10] MEDS: QUEtiapine FUMARATE 200 MG TABLET PO SCH (21:50)
[2017-10-11] MEDS: buPROPion HCL 100 MG TABLET PO SCH (10:15)
[2017-10-11] MEDS: BUPRENORPHINE/NALOXONE 8 MG/2 MG FILM PACKET SL SCH (10:15)
[2017-10-11] MEDS: PRENATAL VITAMINS W/ FOLIC ACID TABLET (FP) PO SCH (10:15)
--- NOTE | 2017-10-11 16:08 | PN ---
BHS Progress Note (SOAP) Subjective: c/o sore throat Objective: 10/11/17 16:06 Vital Signs - 24 hr 10/11/17 10/11/17 10/11/17 00:30 03:30 07:11 Temperature 97.7 F Pulse Rate 76 Respiratory 16 16 18 Rate Blood Pressure 96/60 10/11/17 09:16 Temperature Pulse Rate 85 Respiratory Rate Blood Pressure 108/67 no erytehma or exudate, afeb, no ln Assessment: 10/11/17 16:08 viral pharyngitis, apthous ulcers order magic mouthwash
[2017-10-11] MEDS: MAG HYDROX/ALH/SMC/DPHA/LIDO 240 ML MOUTHWASH MM SCH ×2 (18:25→21:55)
[2017-10-11] MEDS: QUEtiapine FUMARATE 200 MG TABLET PO SCH (21:54)
[2017-10-11] MEDS: THIAMINE HCL 100 MG TABLET (FP) PO SCH (21:54)
[2017-10-12] MEDS: MAG HYDROX/ALH/SMC/DPHA/LIDO 240 ML MOUTHWASH MM SCH ×4 (00:15→18:30)
[2017-10-12] MEDS: buPROPion HCL 100 MG TABLET PO SCH (10:47)
[2017-10-12] MEDS: PRENATAL VITAMINS W/ FOLIC ACID TABLET (FP) PO SCH (10:47)
[2017-10-12] MEDS: BUPRENORPHINE/NALOXONE 8 MG/2 MG FILM PACKET SL SCH (10:47)
[2017-10-12] MEDS: QUEtiapine FUMARATE 200 MG TABLET PO SCH (21:49)
[2017-10-12] MEDS: THIAMINE HCL 100 MG TABLET (FP) PO SCH (21:50)
[2017-10-13] MEDS: MAG HYDROX/ALH/SMC/DPHA/LIDO 240 ML MOUTHWASH MM SCH ×5 (00:33→23:19)
[2017-10-13] MEDS: BUPRENORPHINE/NALOXONE 8 MG/2 MG FILM PACKET SL SCH (09:35)
[2017-10-13] MEDS: PRENATAL VITAMINS W/ FOLIC ACID TABLET (FP) PO SCH (09:35)
[2017-10-13] MEDS: buPROPion HCL 100 MG TABLET PO SCH (09:35)
[2017-10-13] MEDS: QUEtiapine FUMARATE 200 MG TABLET PO SCH (21:42)
[2017-10-13] MEDS: THIAMINE HCL 100 MG TABLET (FP) PO SCH (21:42)
[2017-10-14] MEDS: MAG HYDROX/ALH/SMC/DPHA/LIDO 240 ML MOUTHWASH MM SCH ×3 (06:42→17:26)
[2017-10-14] MEDS: BUPRENORPHINE/NALOXONE 8 MG/2 MG FILM PACKET SL SCH (09:54)
[2017-10-14] MEDS: PRENATAL VITAMINS W/ FOLIC ACID TABLET (FP) PO SCH (09:55)
[2017-10-14] MEDS: buPROPion HCL 100 MG TABLET PO SCH (09:55)
[2017-10-14] MEDS: HYDROCORTISONE 2.5% TOPICAL CREAM 30 GM TUBE RC SCH ×2 (11:42→21:05)
[2017-10-14] MEDS: QUEtiapine FUMARATE 200 MG TABLET PO SCH (21:05)
[2017-10-14] MEDS: THIAMINE HCL 100 MG TABLET (FP) PO SCH (21:05)
[2017-10-15] MEDS: MAG HYDROX/ALH/SMC/DPHA/LIDO 240 ML MOUTHWASH MM SCH ×4 (01:01→17:08)
[2017-10-15] MEDS: buPROPion HCL 100 MG TABLET PO SCH (10:32)
[2017-10-15] MEDS: PRENATAL VITAMINS W/ FOLIC ACID TABLET (FP) PO SCH (10:32)
[2017-10-15] MEDS: BUPRENORPHINE/NALOXONE 8 MG/2 MG FILM PACKET SL SCH (10:32)
[2017-10-15] MEDS: HYDROCORTISONE 2.5% TOPICAL CREAM 30 GM TUBE RC SCH ×2 (10:33→21:39)
--- NOTE | 2017-10-15 13:47 | PN ---
BHS Progress Note (SOAP) Subjective: reporting cravings not feeling stable on current suboxone dose of 8mg daily would like to increase dose Objective: 10/15/17 13:46 Vital Signs - 8 hr 10/15/17 07:05 Temperature 98.2 F Pulse Rate 76 Respiratory 18 Rate Blood Pressure 98/64 a and o x3, no sedation noted Assessment: 10/15/17 13:47 opioid dependence - increase suboxone to 10mg daily 2 mg extra today
[2017-10-15] MEDS ORDERED: BUPRENORPHINE/NALOXONE 2 MG/0.5 MG FILM PACKET SL ONE (14:34)
[2017-10-15] MEDS ORDERED: SUVOREXANT 10 MG TABLET PO PRN (14:35)
--- NOTE | 2017-10-15 16:17 | PN ---
Psychiatric Progress Note Vital Signs: Vital Signs Period Temp Pulse Resp BP Sys/Kelley Pulse Ox Last 24 Hr 98.2 F 76 16-18 98/64 Date of Session: 10/15/17 Chief Complaint:: Discharge visit HPI: Patient addressed Alcohol,Cocaine,Opioid and Cannabis dependence comorbid with Schizoaffective disorder. ROS: Significant for Chronic arthritis,Low back pain. Current Medications: Active Medications Generic Name Dose Route Start Last Admin Trade Name Freq PRN Reason Stop Dose Admin Acetaminophen 650 mg 10/06/17 12:28 10/07/17 10:12 Tylenol - PO 650 mg Q4H PRN Administration FEVER OR PAIN Al Hydroxide/Mg Hydroxide 30 ml 10/06/17 12:28 Mylanta Oral Suspension - PO Q6H PRN DYSPEPSIA Buprenorphine/Naloxone 1 each 10/16/17 10:00 Suboxone 12 Mg-3 Mg Sl Film SL DAILY BK Bupropion HCl 100 mg 10/08/17 10:45 10/15/17 10:32 Wellbutrin - PO 100 mg DAILY BK Administration Eucalyptus/Menthol/Phenol/Sorbitol 1 each 10/06/17 12:28 Cepastat Lozenge - MM Q4H PRN SORE THROAT Guaifenesin 10 ml 10/06/17 12:28 Robitussin Dm - PO Q6H PRN COUGH Hydrocortisone 1 applic 10/14/17 10:30 10/15/17 10:33 Anusol 2.5% Hc Cream - RC Not Given BID BK Hydroxyzine Pamoate 50 mg 10/06/17 12:28 10/07/17 10:12 Vistaril - PO 50 mg Q4H PRN Administration AGITATION Ibuprofen 400 mg 10/06/17 12:28 10/07/17 05:51 Motrin - PO 400 mg Q6H PRN Administration PAIN Lidocaine/Aluminum/Magnesium/Simeth 5 ml 10/11/17 16:15 10/15/17 12:48 Magic Mouthwash *Sjr Formula* - MM 5 ml Q6HPO BK Administration Loperamide HCl 4 mg 10/06/17 12:28 Imodium - PO Q6H PRN DIARRHEA Magnesium Citrate 300 ml 10/06/17 12:28 Citroma - PO Q48H PRN CONSTIPATION Magnesium Hydroxide 30 ml 10/06/17 12:28 Milk Of Magnesia - PO DAILY PRN CONSTIPATION Multivit/Folic Acid/Iron 1 tab 10/07/17 10:00 10/15/17 10:32 Vitamins (Sjr) - PO 1 tab DAILY BK Administration Pseudoephedrine/Triprolidine 1 combo 10/06/17 12:28 Actifed - PO TID PRN NASAL CONGESTION Thiamine HCl 100 mg 10/06/17 22:00 10/14/17 21:05 Vitamin B1 - PO 100 mg HS BK Administration Trimethobenzamide HCl 200 mg 10/07/17 21:30 Tigan Injection - IM Q6H PRN NAUSEA Current Side Effect: No Lab tests ordered: No Lab tests reviewed: Yes Provider note:: Patient will complete this program tomorrow 10/16 17.She has met her treatment goals and will continue to address her issues on outpatient basis at [facility].Patient reports finding Seroquel 200 mg po hs and Wellbutrin 100 mg po daily help to cope with depressed mood and anxiety.Script for 30 days provided.Therapy provided including coping skills, support system utilization to maintain recovery.Patient is stable for discharge tomorrow 10/16/17. Total face to face time:: 30 Mental Status Exam - Mental Status Exam Alert and Oriented to: Time, Place, Person Cognitive Function: Grossly Intact Patient Appearance: Well Groomed Mood: Euthymic Affect: Appropriate, Mood Congruent Patient Behavior: Cooperative Speech Pattern: Clear Voice Loudness: Normal Thought Process: Goal Oriented Thought Disorder: Being Controlled Hallucinations: Denies Suicidal Ideation: Denies Homicidal Ideation: Denies Insight/Judgement: Fair Sleep: Fair Appetite: Good Muscle strength/Tone: Normal Gait/Station: Normal Psychiatric Treatment Plan - Problem List (1) Alcohol dependence Current Visit: Yes (2) Opioid dependence Current Visit: Yes (3) Schizoaffective disorder, bipolar type Current Visit: Yes (4) Nicotine dependence Current Visit: Yes Qualifiers: Nicotine product type: cigarettes Substance use status: uncomplicated Qualified Code(s): F17.210 - Nicotine dependence, cigarettes, uncomplicated (5) Arthritis Current Visit: Yes (6) Cannabis dependence Current Visit: Yes (7) Cocaine dependence Current Visit: Yes Qualifiers: Substance use status: uncomplicated Qualified Code(s): F14.20 - Cocaine dependence, uncomplicated
[2017-10-15] MEDS: THIAMINE HCL 100 MG TABLET (FP) PO SCH (21:39)
[2017-10-15] MEDS: hydrOXYzine PAMOATE 50 MG CAPSULE (FP) PO PRN (22:44)
[2017-10-16] MEDS: MAG HYDROX/ALH/SMC/DPHA/LIDO 240 ML MOUTHWASH MM SCH ×2 (00:15→07:47)
[2017-10-16 07:14] VITALS: BP 119/76; PULSE 77; TEMP 98
[2017-10-16] MEDS: PRENATAL VITAMINS W/ FOLIC ACID TABLET (FP) PO SCH (09:04)
[2017-10-16] MEDS: buPROPion HCL 100 MG TABLET PO SCH (09:04)
[2017-10-16] MEDS: HYDROCORTISONE 2.5% TOPICAL CREAM 30 GM TUBE RC SCH (09:38)
[2017-10-16] MEDS ORDERED: BUPRENORPHINE/NALOXONE 2 MG/0.5 MG FILM PACKET SL SCH (10:00)
[2017-10-16] MEDS ORDERED: BUPRENORPHINE HCL/NALOXONE 12 MG-3 MG SL FILM PACKET SL SCH (10:00)
[2017-10-16] MEDS ORDERED: BUPRENORPHINE/NALOXONE 8 MG/2 MG FILM PACKET SL SCH (10:00)
== END 2017-10-16 09:54 | disposition home or self-care (01) | DRG 772 ==
LOC: YASAS 11:26 → Y3E 11:29
PROVIDERS: ADMIT Psychiatry & Neurology Psychiatry; ATTEND Psychiatry & Neurology Psychiatry
PROC: HZ42ZZZ Group Counseling for Substance Abuse Treatment, Cognitive-Behavioral (ICD-10-PCS; principal; 2017-10-06)
DX: F10.20 Alcohol dependence, uncomplicated (principal); F14.20 Cocaine dependence, uncomplicated; F12.20 Cannabis dependence, uncomplicated; F17.210 Nicotine dependence, cigarettes, uncomplicated; F25.0 Schizoaffective disorder, bipolar type; M12.9 Arthropathy, unspecified; Z59.0 Homelessness
CPT/HCPCS: 87070

== ENCOUNTER 2019-04-28 12:15 | Inpatient (IN) | payer OTHER ==
[2019-04-28 15:31] VITALS: BMI 23.0
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
[2019-04-28] MEDS ORDERED: MAGNESIUM CITRATE 300 ML BOTTLE PO PRN (18:04)
[2019-04-28] MEDS ORDERED: MENTHOL/PHENOL 1 EACH UD MM PRN (18:04)
[2019-04-28] MEDS ORDERED: hydrOXYzine PAMOATE 25 MG CAPSULE (FP) PO PRN (18:04)
[2019-04-28] MEDS ORDERED: ACETAMINOPHEN 325 MG TABLET (FP) PO PRN ×2 (18:04)
[2019-04-28] MEDS ORDERED: IBUPROFEN 400 MG TABLET (FP) PO PRN (18:04)
[2019-04-28] MEDS ORDERED: METHOCARBAMOL 500 MG TABLET PO PRN (18:04)
[2019-04-28] MEDS ORDERED: MAGNESIUM HYDROX 2400MG/30ML ORAL SUSPENSION 30 ML CUP PO PRN (18:04)
[2019-04-28] MEDS ORDERED: chlordiazePOXIDE HCL 25 MG CAPSULE PO PRN (18:04)
[2019-04-28] MEDS ORDERED: MAG HYDROX/AL HYDROX/SIMETH 30 ML UNIT-DOSE CUP PO PRN (18:04)
[2019-04-28] MEDS ORDERED: MELATONIN 5 MG TABLETS PO PRN (18:04)
[2019-04-28] MEDS ORDERED: ONDANSETRON *ODT* 4 MG TABLET SL PRN (18:04)
[2019-04-28] MEDS ORDERED: BISMUTH SUBSALICYLATE 524 MG/30 ML UD PO PRN (18:04)
[2019-04-28] MEDS ORDERED: chlordiazePOXIDE HCL 25 MG CAPSULE PO ONE (19:00)
[2019-04-28] MEDS ORDERED: QUEtiapine FUMARATE 200 MG TABLET PO SCH (22:00)
[2019-04-28] MEDS: THIAMINE HCL 100 MG TABLET (FP) PO SCH (22:42)
[2019-04-28] MEDS: QUEtiapine FUMARATE 100 MG TABLET (FP) PO SCH (22:42)
[2019-04-28] MEDS: chlordiazePOXIDE HCL 25 MG CAPSULE PO SCH (22:43)
[2019-04-28] MEDS: VITAMINS A AND D TOPICAL OINTMENT 60 GM TUBE TP SCH (23:05)
[2019-04-29] MEDS ORDERED: METHADONE HCL 40 MG DISPERSABLE TABLET ONE (04:23)
[2019-04-29] MEDS ORDERED: METHADONE HCL 10 MG TABLET ONE (04:23)
[2019-04-29] MEDS: chlordiazePOXIDE HCL 25 MG CAPSULE PO SCH ×4 (05:18→22:35)
[2019-04-29] MEDS: METHADONE 40 MG, METHADONE 20 MG PO SCH (05:18)
[2019-04-29] MEDS: VITAMINS A AND D TOPICAL OINTMENT 60 GM TUBE TP SCH ×3 (05:21→18:17)
[2019-04-29] MEDS ORDERED: METHADONE HCL 10 MG TABLET PO SCH (06:00)
[2019-04-29] MEDS: NICOTINE 14 MG/24 HOURS TOPICAL PATCH TD SCH (10:16)
[2019-04-29] MEDS: PRENATAL VITAMINS W/ FOLIC ACID TABLET (FP) PO SCH (10:16)
[2019-04-29 10:39] LABS: HEMATOCRIT 35.4 % (32.4-45.2); HEMOGLOBIN 11.8 GM/dL (10.7-15.3); MCH 34.2 pg (25.7-33.7); MCHC 33.4 g/dl (32.0-36.0); MEAN CELL VOLUME 102.3 fl (80-96); MEAN PLT VOLUME 8.5 fl (7.5-11.1); PLATELET COUNT 243 K/MM3 (134-434); RBC 3.46 M/mm3 (3.60-5.2); RDW 13.4 % (11.6-15.6); WHITE BLOOD COUNT 5.9 K/mm3 (4.0-10.0)
[2019-04-29 10:49] LABS: ALBUMIN 3.1 g/dl (3.4-5.0); BILIRUBIN,TOTAL 0.1 mg/dL (0.2-1); CREATININE 0.8 mg/dL (0.55-1.3); POTASSIUM 4.2 mmol/L (3.5-5.1); TOT PROT 5.7 g/dl (6.4-8.2)
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
--- NOTE | 2019-04-29 15:39 | PN ---
S CIWA - CIWA Score Nausea/Vomitin-No Nausea/No Vomiting Muscle Tremors: 3 Anxiety: 3 Agitation: 2 Paroxysmal Sweats: 2 Orientation: 0-Oriented Tacttile Disturbances: 2-Mild Itch/Numbness/Burn Auditory Disturbances: 0-None Visual Disturbances: 0-None Headache: 0-None Present CIWA-Ar Total Score: 12 BHS Progress Note (SOAP) Subjective: Sweating, Anxious, Tremors,. Objective: PATIENT A & O X 3, OBSERVED AMBULATING ON UNIT UNASSISTED. IN NO ACUTE DISTRESS. 04/29/19 15:38 Vital Signs Temperature 97.3 F L 04/29/19 13:06 Pulse Rate 61 04/29/19 13:06 Respiratory Rate 18 04/29/19 13:06 Blood Pressure 103/62 04/29/19 13:06 O2 Sat by Pulse Oximetry (%) Laboratory Tests 04/29/19 04/29/19 04/29/19 07:00 07:00 07:00 WBC 5.9 RBC 3.46 L Hgb 11.8 Hct 35.4 MCV 102.3 H MCH 34.2 H MCHC 33.4 RDW 13.4 Plt Count 243 MPV 8.5 Sodium 139 Potassium 4.2 Chloride 106 Carbon Dioxide 28 Anion Gap 5 L BUN 17 Creatinine 0.8 Est GFR (CKD-EPI)AfAm 100.33 Est GFR (CKD-EPI)NonAf 86.57 Random Glucose 84 Calcium 9.0 Total Bilirubin 0.1 L AST 16 ALT 17 Alkaline Phosphatase 76 Total Protein 5.7 L Albumin 3.1 L RPR Titer Nonreactive LABS NOTED. Assessment: 04/29/19 15:39 WITHDRAWAL SYMPTOMS. Plan: CONTINUE DETOX. INCREASE DAILY PO FLUID / WATER INTAKE.
[2019-04-29] MEDS: QUEtiapine FUMARATE 100 MG TABLET (FP) PO SCH (22:35)
[2019-04-29] MEDS: THIAMINE HCL 100 MG TABLET (FP) PO SCH (22:35)
[2019-04-30] MEDS: VITAMINS A AND D TOPICAL OINTMENT 60 GM TUBE TP SCH ×4 (00:30→19:14)
[2019-04-30] MEDS ORDERED: METHADONE HCL 40 MG DISPERSABLE TABLET ONE (04:39)
[2019-04-30] MEDS ORDERED: METHADONE HCL 10 MG TABLET ONE (04:39)
[2019-04-30] MEDS: METHADONE 40 MG, METHADONE 20 MG PO SCH (06:03)
[2019-04-30] MEDS: chlordiazePOXIDE HCL 25 MG CAPSULE PO SCH ×3 (06:04→18:15)
[2019-04-30] MEDS: NICOTINE 14 MG/24 HOURS TOPICAL PATCH TD SCH (11:20)
[2019-04-30] MEDS: PRENATAL VITAMINS W/ FOLIC ACID TABLET (FP) PO SCH (11:20)
--- NOTE | 2019-04-30 16:10 | PN ---
S CIWA - CIWA Score Nausea/Vomitin-No Nausea/No Vomiting Muscle Tremors: 3 Anxiety: 2 Agitation: 1-Slight > Activity Paroxysmal Sweats: 3 Orientation: 0-Oriented Tacttile Disturbances: 1-Very Mild Itch/Numbness Auditory Disturbances: 0-None Visual Disturbances: 0-None Headache: 0-None Present CIWA-Ar Total Score: 10 BHS Progress Note (SOAP) Subjective: Sweating, Tremors, Anxious. Objective: PATIENT A & O X 3, OBSERVED AMBULATING ON UNIT UNASSISTED. IN NO ACUTE DISTRESS. 04/30/19 16:11 Vital Signs Temperature 97.9 F 04/30/19 13:32 Pulse Rate 51 L 04/30/19 13:32 Respiratory Rate 20 04/30/19 13:32 Blood Pressure 112/70 04/30/19 13:32 O2 Sat by Pulse Oximetry (%) Laboratory Tests 04/29/19 04/29/19 04/29/19 07:00 07:00 07:00 WBC 5.9 RBC 3.46 L Hgb 11.8 Hct 35.4 MCV 102.3 H MCH 34.2 H MCHC 33.4 RDW 13.4 Plt Count 243 MPV 8.5 Sodium 139 Potassium 4.2 Chloride 106 Carbon Dioxide 28 Anion Gap 5 L BUN 17 Creatinine 0.8 Est GFR (CKD-EPI)AfAm 100.33 Est GFR (CKD-EPI)NonAf 86.57 Random Glucose 84 Calcium 9.0 Total Bilirubin 0.1 L AST 16 ALT 17 Alkaline Phosphatase 76 Total Protein 5.7 L Albumin 3.1 L RPR Titer Nonreactive LABS NOTED. ADMISSION UA RESULTS PENDING. 04/30/19 16:13 Assessment: 04/30/19 16:12 WITHDRAWAL SYMPTOMS. 04/30/19 16:13 Plan: CONTINUE DETOX. ENSURE PO FOR CALORIC SUPPLEMENTATION.
[2019-04-30 17:16] LABS: EPI CELLS 2.1 /HPF (0-5/HPF); HYALINE CASTS 1 /lpf (0-8); PH,URINE 5.5 (5.0-8.0); URINE APPEARANCE CLEAR; URINE BILIRUBIN NEGATIVE (NEGATIVE); URINE COLOR YELLOW; URINE GLUCOSE (UA) NEGATIVE (NEGATIVE); URINE KETONE NEGATIVE (NEGATIVE); URINE LEUK ESTERASE TRACE (NEGATIVE); URINE NITRITE NEGATIVE (NEGATIVE); URINE PROTEIN NEGATIVE (NEGATIVE); URINE RBC 1 /hpf (0-4); URINE UROBILINOGEN 0.2 mg/dL (0.2-1.0); URINE WBC 0 /hpf (0-5)
[2019-04-30] MEDS: chlordiazePOXIDE HCL 10 MG CAPSULE PO SCH (22:28)
[2019-04-30] MEDS: THIAMINE HCL 100 MG TABLET (FP) PO SCH (22:28)
[2019-04-30] MEDS: QUEtiapine FUMARATE 100 MG TABLET (FP) PO SCH (22:28)
[2019-04-30] MEDS ORDERED: chlordiazePOXIDE HCL 10 MG CAPSULE PO PRN (23:00)
[2019-05-01] MEDS: VITAMINS A AND D TOPICAL OINTMENT 60 GM TUBE TP SCH ×5 (00:14→23:01)
[2019-05-01] MEDS ORDERED: METHADONE HCL 10 MG TABLET ONE (04:52)
[2019-05-01] MEDS ORDERED: METHADONE HCL 40 MG DISPERSABLE TABLET ONE (04:52)
[2019-05-01] MEDS: chlordiazePOXIDE HCL 10 MG CAPSULE PO SCH ×4 (05:32→22:43)
[2019-05-01] MEDS: METHADONE 40 MG, METHADONE 20 MG PO SCH (05:33)
[2019-05-01] MEDS: NICOTINE 14 MG/24 HOURS TOPICAL PATCH TD SCH (10:40)
[2019-05-01] MEDS: PRENATAL VITAMINS W/ FOLIC ACID TABLET (FP) PO SCH (10:40)
--- NOTE | 2019-05-01 17:17 | PN ---
S CIWA - CIWA Score Nausea/Vomitin-No Nausea/No Vomiting Muscle Tremors: None Anxiety: 1-Mildly Anxious Agitation: 0-Normal Activity Paroxysmal Sweats: 3 Orientation: 2-Disoriented Date<2 days Tacttile Disturbances: 1-Very Mild Itch/Numbness Auditory Disturbances: 0-None Visual Disturbances: 0-None Headache: 0-None Present CIWA-Ar Total Score: 7 BHS Progress Note (SOAP) Subjective: Fatigue, Sweating. Objective: PATIENT A & O X 2 (UNCERTAIN ABOUT CURRENT DAY / DATE). PATIENT OBSERVED AMBULATING ON UNIT UNASSISTED. IN NO ACUTE DISTRESS. 05/01/19 17:15 Vital Signs Temperature 96.4 F L 05/01/19 14:09 Pulse Rate 51 L 05/01/19 14:09 Respiratory Rate 18 05/01/19 14:09 Blood Pressure 100/60 05/01/19 14:09 O2 Sat by Pulse Oximetry (%) Laboratory Tests 04/29/19 04/29/19 04/29/19 07:00 07:00 07:00 WBC 5.9 RBC 3.46 L Hgb 11.8 Hct 35.4 MCV 102.3 H MCH 34.2 H MCHC 33.4 RDW 13.4 Plt Count 243 MPV 8.5 Sodium 139 Potassium 4.2 Chloride 106 Carbon Dioxide 28 Anion Gap 5 L BUN 17 Creatinine 0.8 Est GFR (CKD-EPI)AfAm 100.33 Est GFR (CKD-EPI)NonAf 86.57 Random Glucose 84 Calcium 9.0 Total Bilirubin 0.1 L AST 16 ALT 17 Alkaline Phosphatase 76 Total Protein 5.7 L Albumin 3.1 L Urine Color Urine Appearance Urine pH Ur Specific [place] Urine Protein Urine Glucose (UA) Urine Ketones Urine Blood Urine Nitrite Urine Bilirubin Urine Urobilinogen Ur Leukocyte Esterase Urine WBC (Auto) Urine RBC (Auto) Urine Casts (Auto) U Epithel Cells (Auto) Urine Bacteria (Auto) RPR Titer Nonreactive 04/30/19 09:47 WBC RBC Hgb Hct MCV MCH MCHC RDW Plt Count MPV Sodium Potassium Chloride Carbon Dioxide Anion Gap BUN Creatinine Est GFR (CKD-EPI)AfAm Est GFR (CKD-EPI)NonAf Random Glucose Calcium Total Bilirubin AST ALT Alkaline Phosphatase Total Protein Albumin Urine Color Yellow Urine Appearance Clear Urine pH 5.5 Ur Specific [place] 1.018 Urine Protein Negative Urine Glucose (UA) Negative Urine Ketones Negative Urine Blood Negative Urine Nitrite Negative Urine Bilirubin Negative Urine Urobilinogen 0.2 Ur Leukocyte Esterase Trace Urine WBC (Auto) 0 Urine RBC (Auto) 1 Urine Casts (Auto) 1 U Epithel Cells (Auto) 2.1 Urine Bacteria (Auto) 31.0 RPR Titer LABS NOTED. Assessment: 05/01/19 17:16 WITHDRAWAL SYMPTOMS. Plan: CONTINUE DETOX.
[2019-05-01] MEDS: QUEtiapine FUMARATE 100 MG TABLET (FP) PO SCH (22:43)
[2019-05-01] MEDS: THIAMINE HCL 100 MG TABLET (FP) PO SCH (22:43)
[2019-05-02] MEDS ORDERED: METHADONE HCL 40 MG DISPERSABLE TABLET ONE (04:42)
[2019-05-02] MEDS ORDERED: METHADONE HCL 10 MG TABLET ONE (04:42)
[2019-05-02] MEDS: METHADONE 40 MG, METHADONE 20 MG PO SCH (05:42)
[2019-05-02] MEDS: VITAMINS A AND D TOPICAL OINTMENT 60 GM TUBE TP SCH ×2 (07:15→14:03)
[2019-05-02] MEDS: PRENATAL VITAMINS W/ FOLIC ACID TABLET (FP) PO SCH (10:50)
[2019-05-02] MEDS: chlordiazePOXIDE HCL 10 MG CAPSULE PO SCH (10:50)
[2019-05-02] MEDS: NICOTINE 14 MG/24 HOURS TOPICAL PATCH TD SCH (10:52)
[2019-05-02 13:09] VITALS: BP 124/62; PULSE 86; TEMP 96.7
--- NOTE | 2019-05-02 17:53 | DS ---
[facility] Detox Discharge Summary Admission Date: 04/28/19 Discharge Date: 05/02/19 - History Present History: Alcohol Dependence, Cannabis Dependence, Cocaine Dependence, Opioid Dependence, MMTP Additional Comments: PATIENT GOING TO [facility] ([place], [place]). PATIENT WAS DISCHARGED FROM DETOX UNIT IN STABLE MEDICAL CONDITION. Pertinent Past History: Asthma, Depression, Arthritis, History Of Arthritis Of Knee, M.M.T.P., History Of Anemia, Insomnia, History Of Schizophrenia. - Physical Exam Results Vital Signs: Vital Signs Temperature 96.7 F L 05/02/19 13:08 Pulse Rate 86 05/02/19 13:08 Respiratory Rate 18 05/02/19 13:08 Blood Pressure 124/62 05/02/19 13:08 O2 Sat by Pulse Oximetry (%) Pertinent Admission Physical Exam Findings: WITHDRAWAL SYMPTOMS. Laboratory Tests 04/29/19 04/29/19 04/29/19 07:00 07:00 07:00 WBC 5.9 RBC 3.46 L Hgb 11.8 Hct 35.4 MCV 102.3 H MCH 34.2 H MCHC 33.4 RDW 13.4 Plt Count 243 MPV 8.5 Sodium 139 Potassium 4.2 Chloride 106 Carbon Dioxide 28 Anion Gap 5 L BUN 17 Creatinine 0.8 Est GFR (CKD-EPI)AfAm 100.33 Est GFR (CKD-EPI)NonAf 86.57 Random Glucose 84 Calcium 9.0 Total Bilirubin 0.1 L AST 16 ALT 17 Alkaline Phosphatase 76 Total Protein 5.7 L Albumin 3.1 L Urine Color Urine Appearance Urine pH Ur Specific Breeding Urine Protein Urine Glucose (UA) Urine Ketones Urine Blood Urine Nitrite Urine Bilirubin Urine Urobilinogen Ur Leukocyte Esterase Urine WBC (Auto) Urine RBC (Auto) Urine Casts (Auto) U Epithel Cells (Auto) Urine Bacteria (Auto) RPR Titer Nonreactive 04/30/19 09:47 WBC RBC Hgb Hct MCV MCH MCHC RDW Plt Count MPV Sodium Potassium Chloride Carbon Dioxide Anion Gap BUN Creatinine Est GFR (CKD-EPI)AfAm Est GFR (CKD-EPI)NonAf Random Glucose Calcium Total Bilirubin AST ALT Alkaline Phosphatase Total Protein Albumin Urine Color Yellow Urine Appearance Clear Urine pH 5.5 Ur Specific Breeding 1.018 Urine Protein Negative Urine Glucose (UA) Negative Urine Ketones Negative Urine Blood Negative Urine Nitrite Negative Urine Bilirubin Negative Urine Urobilinogen 0.2 Ur Leukocyte Esterase Trace Urine WBC (Auto) 0 Urine RBC (Auto) 1 Urine Casts (Auto) 1 U Epithel Cells (Auto) 2.1 Urine Bacteria (Auto) 31.0 RPR Titer LABS NOTED. - Treatment Hospital Course: Detox Protocol Followed, Detoxed Safely, Responded well, Discharged Condition Good, Rehab Referral Accepted Patient has Accepted a Rehab Referral to: [facility] ([place], [place]). - Medication Discharge Medications: Ambulatory Orders Quetiapine Fumarate [Seroquel -] 200 mg PO HS #30 tablet 10/15/17 Methadone [Dolophine -] 60 mg PO DAILY 04/28/19 Quetiapine Fumarate [Seroquel] 100 mg PO HS #30 tablet 04/30/19 - Diagnosis (1) Alcohol dependence with uncomplicated withdrawal Status: Acute (2) Methadone maintenance therapy patient Status: Chronic (3) Cannabis dependence Status: Chronic (4) Cocaine dependence Status: Chronic Qualifiers: Substance use status: uncomplicated Qualified Code(s): F14.20 - Cocaine dependence, uncomplicated (5) History of schizophrenia Status: Chronic (6) Insomnia Status: Chronic Qualifiers: Insomnia type: unspecified Qualified Code(s): G47.00 - Insomnia, unspecified (7) Nicotine dependence Status: Chronic Qualifiers: Nicotine product type: cigarettes Substance use status: uncomplicated Qualified Code(s): F17.210 - Nicotine dependence, cigarettes, uncomplicated (8) Non-compliance Status: Chronic (9) Opioid dependence Status: Chronic Qualifiers: Substance use status: uncomplicated Qualified Code(s): F11.20 - Opioid dependence, uncomplicated (10) Substance induced mood disorder Status: Chronic - AMA Did Patient Leave Against Medical Advice: No
== END 2019-05-02 16:55 | disposition home or self-care (01) | DRG 773 ==
LOC: YASAS 12:15 → Y3N 18:18
PROVIDERS: ADMIT Surgery; ATTEND Surgery
PROC: HZ2ZZZZ Detoxification Services for Substance Abuse Treatment (ICD-10-PCS; principal; 2019-04-28)
DX: F10.230 Alcohol dependence with withdrawal, uncomplicated (principal); F14.20 Cocaine dependence, uncomplicated; F12.20 Cannabis dependence, uncomplicated; F11.20 Opioid dependence, uncomplicated; F17.210 Nicotine dependence, cigarettes, uncomplicated; F19.24 Other psychoactive substance dependence with psychoactive substance-induced mood disorder; G47.00 Insomnia, unspecified; Z86.59 Personal history of other mental and behavioral disorders; Z91.5 Personal history of self-harm; Z59.0 Homelessness; Z91.19 Patient's noncompliance with other medical treatment and regimen
CPT/HCPCS: 36415; 80053; 81003; 85027; 86593

== ENCOUNTER 2019-08-01 14:45 | Inpatient (IN) | payer OTHER ==
[2019-08-01 17:44] VITALS: BMI 28.5
--- NOTE | 2019-08-01 18:58 | HP ---
COWS - Scale Resting Pulse: 1= MO 81-100 Sweatin=Flushed/Facial Moisture Restless Observation: 5= Unable to Sit Still Pupil Size: 2= Moderately Dilated (Pupils = 5 mm) Bone or Joint Aches: 1= Mild Discomfort Runny Nose/ Eye Tearin= Runny Nose/Eyes GI Upset > 30mins: 2= Nausea/Diarrhea Tremor Observation: 4= Gross Tremor/Twitching Yawning Observation: 1= 1-2x During Session Anxiety or Irritability: 1=Feels Anxious/Irritable Goose Flesh Skin: 0=Smooth Skin COWS Score: 21 CIWA Score Nausea/Vomitin Muscle Tremors: 4-Moderate,w/Arms Extend Anxiety: 4-Mod. Anxious/Guarded Agitation: 7-Pacing/Thrashing Paroxysmal Sweats: 3 (Increased facial moisture) Orientation: 0-Oriented Tacttile Disturbances: 0-None Auditory Disturbances: 0-None Visual Disturbances: 0-None Headache: 3-Moderate CIWA-Ar Total Score: 27 - Admission Criteria OASAS Guidelines: Admission for Medically Managed Detox: Requires at least one of the followin. CIWA greater than 12 2. Seizures within the past 24 hours 3. Delirium tremens within the past 24 hours 4. Hallucinations within the past 24 hours 5. Acute intervention needed for co occurring medical disorder 6. Acute intervention needed for co occurring psychiatric disorder 7. Severe withdrawal that cannot be handled at a lower level of care (continued vomiting, continued diarrhea, abnormal vital signs) requiring intravenous medication and/or fluids 8. Patient presents the following: CIWA greater than 12 Admission Criteria Met: Admission criteria met Admission ROS [facility] Chief Complaint: "I'm in severe withdrawal" Allergies/Adverse Reactions: Allergies Allergy/AdvReac Type Severity Reaction Status Date / Time Fish Containing Products Allergy Verified 08/01/19 17:30 No Known Drug Allergies Allergy Verified 08/01/19 17:30 shellfish derived Allergy Verified 08/01/19 17:30 fish Allergy Uncoded 08/01/19 17:30 seafood Allergy Uncoded 08/01/19 17:30 History of Present Illness: 49 yo w/ alcohol and opioid withdrawal seeking detox from alcohol. Patient seen in [facility] ED on 08/01/19 for cough, SOB, chest pain and bilateral leg pain. Rx'd w/ tylenol, albuterol, guaifenesin, atrovent and prednisone. [facility] reports reviewed: 08/01/19: CXR: Normal Chest; 08/01/19: ECG Sinus rhythm w/ marked arrythmia. Biatrial enlargement - abn EKG. States no changes from EKG done on 03/04/2014. No significant changes from [facility] EK's done on 10/01/17 and 07/07/17. Denies CP/palpitations. Patient was detoxed @ [facility] in May 2019 and referred to [facility] in-patient residential rehab. Was in [facility] residential x 2 months but states "kicked out because of fighting". Utox: + THC, JACKI, FEN, MOP,MTD HCG: neg Heroin use began at age 35. Current use is 8 bags nasal x 1 week. Was not using while in [facility]. Patient was on [facility] MMTP but did not attend for 1 week,. States relapsed w/ opiates. States last medicated at [facility]-MMTP 1 week ago w/ Methadone 80 mg. Alcohol use began at age 15. Currently during 3 pints vodka and 4 margaritas daily. Last drink 2 days ago. Cocaine use began at age 15. Marijuana use began at age 12. Nicotine use b tahira at age 12. Current 1/2 PPD Denies seizures, blackouts, overdoses. PMHx: SOB (denies asthma);Cough; Denies asthma/COPD MHHx: Bipolar, Depression. On MH meds. Being seen for MH issues at [facility]. Denies thoughts of harming self or others. SHx: Homeless. Unemployed. Denies legal issues. Patient Name: Laurence Rosas Date: 1970 Address: [address] [place], [place] [id number] Sex: Female Rx Written Rx Dispensed Drug Quantity Days Supply Prescriber Name 03/03/2019 03/03/2019 buprenorphine-naloxone 8-2 mg sl film 20 10 Chey Claudio 03/03/2019 03/03/2019 buprenorphine-naloxone 4-1 mg sl film 20 10 Chey Claudio Patient Name: Laurence Rosas Date: 1970 Address: [address] [place] [id number] Sex: Female Rx Written Rx Dispensed Drug Quantity Days Supply Prescriber Name 01/14/2019 01/14/2019 suboxone 8 mg-2 mg sl film 10 5 Fagbemi, Moronkeji Olapade MD 08/21/2018 08/21/2018 suboxone 8 mg-2 mg sl film 14 7 Archer, Maylin Bob 08/14/2018 08/14/2018 suboxone 8 mg-2 mg sl film 14 7 Archer, Maylin L 08/08/2018 08/09/2018 suboxone 8 mg-2 mg sl film 12 6 Archer, Maylin L 08/06/2018 08/06/2018 suboxone 8 mg-2 mg sl film 8 4 Archer, Maylin Bob Patient Name: Laurence Rosas Date: 1970 Address: [address] [place] [address] Sex: Female Rx Written Rx Dispensed Drug Quantity Days Supply Prescriber Name 11/22/2018 11/22/2018 suboxone 8 mg-2 mg sl film 60 30 Willa Mcneilenid 10/08/2018 10/08/2018 suboxone 4 mg-1 mg sl film 16 10 José Miguel Mcneillincoln Patient Name: Laurence Rosas Date: 1970 Address: [address] [place] [address] Sex: Female Rx Written Rx Dispensed Drug Quantity Days Supply Prescriber Name 10/18/2018 11/06/2018 suboxone 8 mg-2 mg sl film 14 14 Angie Mcneil 08/30/2018 09/02/2018 suboxone 8 mg-2 mg sl film 14 7 Tristan Elkins MD Exam Limitations: No Limitations - Ebola screening Have you traveled outside of the country in the last 21 days: No (N) Have you had contact with anyone from an Ebola affected area: No Have you been sick,other than usual withdrawal symptoms: Yes (Cough, SOB, chest pain) Do you have a fever: No - Review of Systems Constitutional: Chills, Diaphoresis, Changes in sleep (Difficulty falling asleep ) EENT: reports: No Symptoms Reported Respiratory: reports: See HPI, Cough (x 2 days), Shortness of Breath Cardiac: reports: See HPI GI: reports: Diarrhea (watery, light brown, recently), Nausea, Vomiting ( vomited earlier today, while hospitalized) : reports: No Symptoms Reported Musculoskeletal: reports: Back Pain (r/t withdrawal), Other (Thigh pain earleir - unknow cause. None at this time) Neuro: reports: Headache (throbbing, frontal) Endocrine: reports: No Symptoms Reported Hematology: reports: No Symptoms Reported Psychiatric: reports: Orientated x3, Agitated, Anxious, Depressed (Denies thoughts of harming self or others.) Patient History - Patient Medical History Hx Anemia: No Hx Asthma: Yes Hx Chronic Obstructive Pulmonary Disease (COPD): No Hx Cancer: No Hx Cardiac Disorders: No Hx Congestive Heart Failure: No Hx Hypertension: No Hx Hypercholesterolemia: No Hx Pacemaker: No HX Cerebrovascular Accident: No Hx Seizures: No Hx Dementia: No Hx Diabetes: No Hx Gastrointestinal Disorders: No Hx Liver Disease: No Hx Genitourinary Disorders: No Hx Sexually Transmitted Disorders: No Hx Renal Disease (ESRD): No Hx Thyroid Disease: No Hx Human Immunodeficiency Virus (HIV): No (negative) Hx Hepatitis C: No (negative) Hx Depression: Yes Hx Suicide Attempt: Yes (07/2017) Hx Bipolar Disorder: No Hx Schizophrenia: No - Patient Surgical History Past Surgical History: Yes Hx Neurologic Surgery: No Hx Cataract Extraction: No Hx Cardiac Surgery: No Hx Lung Surgery: No Hx Breast Surgery: No Hx Breast Biopsy: No Hx Abdominal Surgery: No Hx Appendectomy: No Hx Cholecystectomy: No Hx Genitourinary Surgery: No Hx Section: Yes (x2 last 17 years ago) Hx Orthopedic Surgery: No Anesthesia Reaction: No - PPD History Previous Implant?: Yes (TB Gold test ) Date: 04/30/19 Results: 0mm PPD to be Administered?: No - Reproductive History Patient is a Female of Child Bearing Age (11 -55 yrs old): Yes Last Menstrual Period: 07/08/19 Patient : No - Smoking Cessation Smoking history: Current every day smoker Have you smoked in the past 12 months: Yes Aproximately how many cigarettes per day: 10 Hx Chewing Tobacco Use: No Initiated information on smoking cessation: Yes 'Breaking Loose' booklet given: 08/01/19 - Substance & Tx. History Hx Alcohol Use: Yes Hx Substance Use: Yes Substance Use Type: Alcohol, Cocaine, Heroin, Marijuana, Opiates Hx Substance Use Treatment: Yes (detox, rehab, Currently on MMTP - but missed doses) - Substances abused Alcohol Substance route: Oral Frequency: Daily Amount used: 1 [place] Age of first use: 12 Date of last use: 08/01/19 Heroin Other (specify): SNIFF Frequency: Daily Amount used: 1 BAG Age of first use: 34 Date of last use: 07/30/19 Crack Substance route: Smoking Frequency: Daily Amount used: 100 dollars Age of first use: 15 Date of last use: 07/30/19 Family Disease History - Family Disease History Family Disease History: Other: Father (alcohol,) Admission Physical Exam [facility] - Vital Signs Vital Signs: Vital Signs - 24 hr 08/01/19 17:29 Temperature 98.2 F Pulse Rate 72 Respiratory 16 Rate Blood Pressure 141/95 - Physical General Appearance: Yes: Nourished, Moderate Distress, Tremorous, Sweating ( Increased facial moisture), Anxious HEENTM: Yes: EOMI (Jerking movement of eyes upon lateral gaze), Hearing grossly Normal, Normocephalic, Normal Voice, CHRIS (Pupils = 5 mm), Pharynx Normal, Nasal Congestion, Other (tearing) Respiratory: Yes: Chest Non-Tender, Labored Respiration, Wheezing (Insp wheeze bilateral - mild. Breath sounds at bases. 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 (2) Cough Current Visit: Yes Status: Acute (3) Alcohol dependence with uncomplicated withdrawal Current Visit: Yes Status: Acute (4) Cannabis dependence Current Visit: Yes Status: Chronic (5) Cocaine dependence Current Visit: Yes Status: Chronic Qualifiers: Substance use status: uncomplicated Qualified Code(s): F14.20 - Cocaine dependence, uncomplicated (6) Methadone maintenance therapy patient Current Visit: Yes Status: Chronic Comment: On methadone maintenance program. Missed several doses and needs program to be contacted for future dosages. (7) Nicotine dependence Current Visit: Yes Status: Chronic Qualifiers: Nicotine product type: cigarettes Substance use status: uncomplicated Qualified Code(s): F17.210 - Nicotine dependence, cigarettes, uncomplicated (8) History of abnormal electrocardiogram Current Visit: Yes Status: Chronic (9) Nystagmus Current Visit: Yes Status: Suspected Comment: Jerking movement of eyes upon lateral gaze (10) Opioid use disorder Current Visit: Yes Status: Chronic Comment: Continues to relapse w/ illicit opiate use while on methadone maintenance. Cleared for Admission S - Detox or Rehab [facility] Level of Care: Medically Managed Detox Regimen/Protocol: Librium Claeared for Rehab Admission: No Breathalyzer - Breathalyzer Breathalyzer: 0 Urine Drug Screen - Test Device Lot number: [id number] Expiration date: 04/25/21 - Control Is test valid?: Yes - Results Drug screen NEGATIVE: No Urine drug screen results: THC-Marijuana, JACKI-Cocaine, FEN-Fentanyl, MOP-Opiates , MTD-Methadone Inpatient Rehab Admission - Rehab Decision to Admit Inpatient rehab admission?: No
[2019-08-01] MEDS ORDERED: ACETAMINOPHEN 325 MG TABLET (FP) PO PRN ×2 (19:25)
[2019-08-01] MEDS ORDERED: MELATONIN 5 MG TABLETS PO PRN (19:25)
[2019-08-01] MEDS ORDERED: chlordiazePOXIDE HCL 25 MG CAPSULE PO PRN (19:25)
[2019-08-01] MEDS ORDERED: MAG HYDROX/AL HYDROX/SIMETH 30 ML UNIT-DOSE CUP PO PRN (19:25)
[2019-08-01] MEDS ORDERED: MENTHOL/PHENOL 1 EACH UD MM PRN (19:25)
[2019-08-01] MEDS ORDERED: METHOCARBAMOL 500 MG TABLET PO PRN (19:25)
[2019-08-01] MEDS ORDERED: BISMUTH SUBSALICYLATE 524 MG/30 ML UD PO PRN (19:25)
[2019-08-01] MEDS ORDERED: MAGNESIUM CITRATE 300 ML BOTTLE PO PRN (19:25)
[2019-08-01] MEDS ORDERED: MAGNESIUM HYDROX 2400MG/30ML ORAL SUSPENSION 30 ML CUP PO PRN (19:25)
[2019-08-01] MEDS ORDERED: NICOTINE POLACRILEX 2 MG GUM BUC PRN (19:25)
[2019-08-01] MEDS ORDERED: METHADONE HCL 10 MG TABLET PO ONE (20:00)
[2019-08-01] MEDS ORDERED: chlordiazePOXIDE HCL 25 MG CAPSULE PO ONE (20:00)
[2019-08-01] MEDS: guaiFENesin 200 MG/10 ML 10 ML UNIT-DOSE CUPS PO SCH (20:20)
[2019-08-01] MEDS: THIAMINE HCL 100 MG TABLET (FP) PO SCH (22:33)
[2019-08-01] MEDS: chlordiazePOXIDE HCL 25 MG CAPSULE PO SCH (22:33)
[2019-08-01] MEDS: GABAPENTIN 300 MG CAPSULE (FP) PO SCH (22:33)
[2019-08-01] MEDS: IBUPROFEN 400 MG TABLET (FP) PO PRN (22:33)
[2019-08-02] MEDS: guaiFENesin 200 MG/10 ML 10 ML UNIT-DOSE CUPS PO SCH ×4 (03:58→20:39)
[2019-08-02] MEDS: chlordiazePOXIDE HCL 25 MG CAPSULE PO SCH ×4 (05:27→22:46)
[2019-08-02] MEDS: ALBUTEROL SO4 0.083% IH SOL 2.5 MG/3 ML VIAL.NEB. NEB SCH ×4 (08:37→20:39)
[2019-08-02 10:27] LABS: HEMATOCRIT 34.7 % (32.4-45.2); HEMOGLOBIN 11.7 GM/dL (10.7-15.3); MCH 33.8 pg (25.7-33.7); MCHC 33.6 g/dl (32.0-36.0); MEAN CELL VOLUME 100.3 fl (80-96); MEAN PLT VOLUME 8.4 fl (7.5-11.1); PLATELET COUNT 242 K/MM3 (134-434); RBC 3.46 M/mm3 (3.60-5.2); RDW 12.9 % (11.6-15.6); WHITE BLOOD COUNT 10.6 K/mm3 (4.0-10.0)
[2019-08-02 10:30] LABS: ALBUMIN 3.2 g/dl (3.4-5.0); BILIRUBIN,TOTAL 0.3 mg/dL (0.2-1); CALCIUM 9.1 mg/dL (8.5-10.1); CREATININE 0.7 mg/dL (0.55-1.3); POTASSIUM 3.2 mmol/L (3.5-5.1); TOT PROT 6.3 g/dl (6.4-8.2)
[2019-08-02] MEDS ORDERED: METHADONE HCL 10 MG TABLET PO ONE (10:32)
[2019-08-02] MEDS: GABAPENTIN 300 MG CAPSULE (FP) PO SCH ×2 (10:35→22:46)
[2019-08-02] MEDS: PRENATAL VITAMINS W/ FOLIC ACID TABLET (FP) PO SCH (10:35)
[2019-08-02] MEDS: predniSONE 20 MG TABLET (UD) PO SCH (10:35)
[2019-08-02] MEDS: NICOTINE 14 MG/24 HOURS TOPICAL PATCH TD SCH (10:35)
[2019-08-02] MEDS ORDERED: POTASSIUM CHLORIDE TABS 20 MEQ TABLET.ER (FP) PO ONE (10:45)
--- NOTE | 2019-08-02 10:45 | PN ---
[facility] CIWA - CIWA Score Nausea/Vomitin-No Nausea/No Vomiting Muscle Tremors: 3 Anxiety: 4-Mod. Anxious/Guarded Agitation: 3 Paroxysmal Sweats: 3 Orientation: 0-Oriented Tacttile Disturbances: 2-Mild Itch/Numbness/Burn Auditory Disturbances: 0-None Visual Disturbances: 2-Mild Sensitivity Headache: 0-None Present CIWA-Ar Total Score: 17 BHS COWS - Scale Resting Pulse: 0= MA 80 or Below Sweatin= Chills/Flushing Restless Observation: 1= Difficult to Sit Still Pupil Size: 0= Normal to Room Light Bone or Joint Aches: 2= Severe Diffuse Aches Runny Nose/ Eye Tearin= None GI Upset > 30mins: 1= Stomach Cramp Tremor Observation of Outstretched Hands: 2= Slight Tremor Visible Yawning Observation: 1= 1-2x During Session Anxiety or Irritability: 2=Irritable/Anxious Goose Flesh Skin: 3=Piloerection COWS Score: 13 S Progress Note (SOAP) Subjective: Tremors, Anxious, Sweating, Body Aches, Upset Stomach, Fatigue. Objective: PATIENT A & O X 3, OBSERVED AMBULATING ON DETOX UNIT UNASSISTED. IN NO ACUTE DISTRESS. 08/02/19 10:44 Vital Signs Temperature 97.6 F 08/02/19 09:26 Pulse Rate 69 08/02/19 09:26 Respiratory Rate 18 08/02/19 09:26 Blood Pressure 109/73 08/02/19 09:26 O2 Sat by Pulse Oximetry (%) 95 08/01/19 20:28 Laboratory Tests 08/02/19 08/02/19 08:00 08:00 WBC 10.6 H RBC 3.46 L Hgb 11.7 Hct 34.7 MCV 100.3 H MCH 33.8 H MCHC 33.6 RDW 12.9 Plt Count 242 MPV 8.4 Sodium 143 Potassium 3.2 L Chloride 108 H Carbon Dioxide 24 Anion Gap 12 BUN 10.0 Creatinine 0.7 Est GFR (CKD-EPI)AfAm 117.91 Est GFR (CKD-EPI)NonAf 101.74 Random Glucose 99 Calcium 9.1 Total Bilirubin 0.3 AST 13 L ALT 15 Alkaline Phosphatase 81 Total Protein 6.3 L Albumin 3.2 L LABS NOTED. 09/07/19 10:48 Assessment: 08/02/19 10:48 WITHDRAWAL SYMPTOMS. HYPOKALEMIA. Plan: CONTINUE DETOX. K-DUR, 20 MEQ PO BID FOR LOW K LEVEL NOTED ON DETOX ADMISSION LABORATORY ASSESSMENT. RE-CHECK K LEVEL ON 08/04/2019 TO SEE IF ANY CHANGE IN K LEVEL. NOTE: PATIENT IS CURRENTLY A CLIENT AT [facility] ([place], [place]), DAILY MAINTENANCE DOSE: 80 MG PO DAILY. HOWEVER, PER LABORER WHARF AT [facility], LAST DAY THAT METHADONE WAS DISPENSED TO PATIENT AT [facility] WAS ON 07/22/2019. THIS CONFIRMED BY PATIENT HERSELF. PER MS. MARTÍNEZ RN AT [facility], PROTOCOL AT THAT [facility] STATES THAT WHEN PATIENT MISSES > 7 DAYS OF METHADONE MAINTENANCE, THEN PATIENT IS TO BE RESUMED AT METHADONE 30 MG PO DAILY, THEN INCREASED BY 10 MG PO DAILY EVERY TWO (2) DAYS UNTIL SHE RESUMES PREVIOUS MAINTENANCE DOSE (80 MG PO DAILY). PATIENT RECEIVED 30 MG PO X 1 DOSE YESTERDAY AFTER ADMISSION TO DETOX. PATIENT WILL RECEIVE 30 MG PO X 1 DOSE TODAY, THEN WILL RECEIVE 40 MG PO STARTING TOMORROW, 08/03/2019, AND WILL CONTINUE TO BE INCREASED BY 10 MG PO EVERY TWO DAYS FOR REMAINDER OF DETOX ADMISSION. PATIENT VERBALIZED UNDERSTANDING OF THIS PROTOCOL.
--- NOTE | 2019-08-02 12:41 | CONSULT ---
[facility] Psychiatric Consult - Data Date of interview: 08/02/19 Admission source: [facility] Identifying data: Bilingual Speech Language Pathologist visited patient at bedside for psychiatric evaluation as requested. Patient declines. " I feel tired. " Nursing staff is made aware.
[2019-08-02] MEDS: POTASSIUM CHLORIDE TABS 20 MEQ TABLET.ER (FP) PO SCH (17:36)
--- NOTE | 2019-08-02 21:07 | PN ---
[facility]
[2019-08-02] MEDS: THIAMINE HCL 100 MG TABLET (FP) PO SCH (22:46)
[2019-08-02] MEDS: ALBUTEROL SO4 8 GM HFA INHALER IH PRN (22:49)
[2019-08-03] MEDS: chlordiazePOXIDE HCL 25 MG CAPSULE PO SCH ×4 (05:52→22:46)
[2019-08-03] MEDS: METHADONE HCL 40 MG DISPERSABLE TABLET PO SCH (05:52)
[2019-08-03] MEDS: guaiFENesin 200 MG/10 ML 10 ML UNIT-DOSE CUPS PO SCH ×4 (06:13→19:30)
[2019-08-03] MEDS: POTASSIUM CHLORIDE TABS 20 MEQ TABLET.ER (FP) PO SCH ×2 (10:40→17:41)
[2019-08-03] MEDS: PRENATAL VITAMINS W/ FOLIC ACID TABLET (FP) PO SCH (10:41)
[2019-08-03] MEDS: NICOTINE 14 MG/24 HOURS TOPICAL PATCH TD SCH (10:41)
[2019-08-03] MEDS: predniSONE 20 MG TABLET (UD) PO SCH (10:41)
[2019-08-03] MEDS: GABAPENTIN 300 MG CAPSULE (FP) PO SCH ×2 (10:41→22:46)
[2019-08-03] MEDS: ALBUTEROL SO4 8 GM HFA INHALER IH PRN ×2 (13:41→17:43)
--- NOTE | 2019-08-03 15:37 | PN ---
[facility] CIWA - CIWA Score Nausea/Vomitin-Mild Nausea/No Vomiting Muscle Tremors: 3 Anxiety: 2 Agitation: 2 Paroxysmal Sweats: 2 Orientation: 0-Oriented Tacttile Disturbances: 1-Very Mild Itch/Numbness Auditory Disturbances: 0-None Visual Disturbances: 0-None Headache: 1-Very Mild CIWA-Ar Total Score: 12 BHS COWS - Scale Resting Pulse: 0= [place] 80 or Below Sweatin= Chills/Flushing Restless Observation: 0= Sits Still Pupil Size: 0= Normal to Room Light Bone or Joint Aches: 1= Mild Discomfort Runny Nose/ Eye Tearin= Nasal Congestion GI Upset > 30mins: 2= Nausea/Diarrhea (no diarrhea) Tremor Observation of Outstretched Hands: 2= Slight Tremor Visible Yawning Observation: 2= >3x During Session Anxiety or Irritability: 1=Feels Anxious/Irritable Goose Flesh Skin: 0=Smooth Skin COWS Score: 10 [facility] Progress Note (SOAP) Subjective: 49 years old female 2nd patient [facility] since 2017 was admitted on 08/01/19 for alcohol and opiate withdrawal sx managment feeling better due to methadone dosage is picking up that he was on 80 mg po daily upon discharge up to 50 mg po daily patient will return to his methadone program for proper dosage adjustment Objective: 08/03/19 15:44 Vital Signs Temperature 97.6 F 08/03/19 13:28 Pulse Rate 69 08/03/19 13:28 Respiratory Rate 18 08/03/19 13:28 Blood Pressure 105/65 08/03/19 13:28 O2 Sat by Pulse Oximetry (%) 95 08/02/19 20:00 Laboratory Last Values WBC 10.6 K/mm3 (4.0-10.0) H 08/02/19 08:00 RBC 3.46 M/mm3 (3.60-5.2) L 08/02/19 08:00 Hgb 11.7 GM/dL (10.7-15.3) 08/02/19 08:00 Hct 34.7 % (32.4-45.2) 08/02/19 08:00 MCV 100.3 fl (80-96) H 08/02/19 08:00 MCH 33.8 pg (25.7-33.7) H 08/02/19 08:00 MCHC 33.6 g/dl (32.0-36.0) 08/02/19 08:00 RDW 12.9 % (11.6-15.6) 08/02/19 08:00 Plt Count 242 K/MM3 (134-434) 08/02/19 08:00 MPV 8.4 fl (7.5-11.1) 08/02/19 08:00 Sodium 143 mmol/L (136-145) 08/02/19 08:00 Potassium 3.2 mmol/L (3.5-5.1) L 08/02/19 08:00 Chloride 108 mmol/L (98-107) H 08/02/19 08:00 Carbon Dioxide 24 mmol/L (21-32) 08/02/19 08:00 Anion Gap 12 MMOL/L (8-16) 08/02/19 08:00 BUN 10.0 mg/dL (7-18) 08/02/19 08:00 Creatinine 0.7 mg/dL (0.55-1.3) 08/02/19 08:00 Est GFR (CKD-EPI)AfAm 117.91 08/02/19 08:00 Est GFR (CKD-EPI)NonAf 101.74 08/02/19 08:00 Random Glucose 99 mg/dL (74-106) 08/02/19 08:00 Calcium 9.1 mg/dL (8.5-10.1) 08/02/19 08:00 Total Bilirubin 0.3 mg/dL (0.2-1) 08/02/19 08:00 AST 13 U/L (15-37) L 08/02/19 08:00 ALT 15 U/L (13-61) 08/02/19 08:00 Alkaline Phosphatase 81 U/L (45-117) 08/02/19 08:00 Total Protein 6.3 g/dl (6.4-8.2) L 08/02/19 08:00 Albumin 3.2 g/dl (3.4-5.0) L 08/02/19 08:00 lab noted patient was in the ER for respiratory distress currently no dizziness no shortness of the breath no wheezing bilaterally on auscultation Assessment: 08/03/19 15:45 alcohol and opiate withdrawal sx Plan: continue libirum detox regimen continue raise methadone dosage
[2019-08-03] MEDS: THIAMINE HCL 100 MG TABLET (FP) PO SCH (22:46)
[2019-08-04] MEDS ORDERED: chlordiazePOXIDE HCL 10 MG CAPSULE PO PRN
[2019-08-04] MEDS: guaiFENesin 200 MG/10 ML 10 ML UNIT-DOSE CUPS PO SCH ×3 (02:22→14:14)
[2019-08-04] MEDS: chlordiazePOXIDE HCL 10 MG CAPSULE PO SCH ×4 (06:16→22:57)
[2019-08-04] MEDS: METHADONE HCL 40 MG DISPERSABLE TABLET PO SCH (06:16)
[2019-08-04] MEDS: POTASSIUM CHLORIDE TABS 20 MEQ TABLET.ER (FP) PO SCH ×2 (10:31→17:49)
[2019-08-04] MEDS: PRENATAL VITAMINS W/ FOLIC ACID TABLET (FP) PO SCH (10:31)
[2019-08-04] MEDS: predniSONE 20 MG TABLET (UD) PO SCH (10:31)
[2019-08-04] MEDS: ALBUTEROL SO4 8 GM HFA INHALER IH PRN (10:32)
[2019-08-04] MEDS: NICOTINE 14 MG/24 HOURS TOPICAL PATCH TD SCH (10:34)
[2019-08-04] MEDS: GABAPENTIN 300 MG CAPSULE (FP) PO SCH ×2 (12:20→22:44)
--- NOTE | 2019-08-04 15:36 | PN ---
[facility] CIWA - CIWA Score Nausea/Vomitin-Mild Nausea/No Vomiting Muscle Tremors: 2 Anxiety: 3 Agitation: 2 Paroxysmal Sweats: 1-Minimal Palms Moist Orientation: 0-Oriented Tacttile Disturbances: 0-None Auditory Disturbances: 0-None Visual Disturbances: 0-None Headache: 0-None Present CIWA-Ar Total Score: 9 S Progress Note (SOAP) Subjective: doing well with libirum detox regimen methadone 80 mg po daily last dose 07/22/19 will received 40mg of methadone 08/05/19 and 50 mg po of methadone 08/06/19 possible methadone 60mg 08/07/19 patient prefers returning to methadone program Objective: 08/04/19 15:41 Vital Signs Temperature 97.4 F L 08/04/19 13:21 Pulse Rate 68 08/04/19 13:21 Respiratory Rate 18 08/04/19 13:21 Blood Pressure 104/70 08/04/19 13:21 O2 Sat by Pulse Oximetry (%) 97 08/04/19 07:45 Laboratory Last Values WBC 10.6 K/mm3 (4.0-10.0) H 08/02/19 08:00 RBC 3.46 M/mm3 (3.60-5.2) L 08/02/19 08:00 Hgb 11.7 GM/dL (10.7-15.3) 08/02/19 08:00 Hct 34.7 % (32.4-45.2) 08/02/19 08:00 MCV 100.3 fl (80-96) H 08/02/19 08:00 MCH 33.8 pg (25.7-33.7) H 08/02/19 08:00 MCHC 33.6 g/dl (32.0-36.0) 08/02/19 08:00 RDW 12.9 % (11.6-15.6) 08/02/19 08:00 Plt Count 242 K/MM3 (134-434) 08/02/19 08:00 MPV 8.4 fl (7.5-11.1) 08/02/19 08:00 Sodium 143 mmol/L (136-145) 08/02/19 08:00 Potassium 3.9 mmol/L (3.5-5.1) 08/04/19 09:00 Chloride 108 mmol/L (98-107) H 08/02/19 08:00 Carbon Dioxide 24 mmol/L (21-32) 08/02/19 08:00 Anion Gap 12 MMOL/L (8-16) 08/02/19 08:00 BUN 10.0 mg/dL (7-18) 08/02/19 08:00 Creatinine 0.7 mg/dL (0.55-1.3) 08/02/19 08:00 Est GFR (CKD-EPI)AfAm 117.91 08/02/19 08:00 Est GFR (CKD-EPI)NonAf 101.74 08/02/19 08:00 Random Glucose 99 mg/dL (74-106) 08/02/19 08:00 Calcium 9.1 mg/dL (8.5-10.1) 08/02/19 08:00 Total Bilirubin 0.3 mg/dL (0.2-1) 08/02/19 08:00 AST 13 U/L (15-37) L 08/02/19 08:00 ALT 15 U/L (13-61) 08/02/19 08:00 Alkaline Phosphatase 81 U/L (45-117) 08/02/19 08:00 Total Protein 6.3 g/dl (6.4-8.2) L 08/02/19 08:00 Albumin 3.2 g/dl (3.4-5.0) L 08/02/19 08:00 POC Urine HCG, Qual Negative 08/01/19 18:03 lab noted Assessment: 08/04/19 15:41 alcohol withdrawal sx Plan: continue librium detox regimen along with methadone incremental increasing up to 80 mg
[2019-08-04] MEDS: IBUPROFEN 400 MG TABLET (FP) PO PRN (21:21)
[2019-08-04] MEDS: THIAMINE HCL 100 MG TABLET (FP) PO SCH (22:44)
[2019-08-05] MEDS ORDERED: METHADONE HCL 40 MG DISPERSABLE TABLET ONE (04:07)
[2019-08-05] MEDS ORDERED: METHADONE HCL 10 MG TABLET ONE (04:07)
[2019-08-05] MEDS ORDERED: chlordiazePOXIDE HCL 10 MG CAPSULE PO SCH (05:00)
[2019-08-05] MEDS ORDERED: METHADONE 40 MG, METHADONE 10 MG PO SCH (06:00)
[2019-08-05] MEDS ORDERED: METHADONE HCL 40 MG DISPERSABLE TABLET PO SCH (06:00)
[2019-08-05] MEDS: ALBUTEROL SO4 8 GM HFA INHALER IH PRN (06:42)
[2019-08-05 09:10] VITALS: BP 103/76; PULSE 89; TEMP 97.4
--- NOTE | 2019-08-05 09:35 | DS ---
[facility] Detox Discharge Summary Admission Date: 08/01/19 Discharge Date: 08/05/19 - History Present History: Alcohol Dependence Additional Comments: 49 years old female admitted on 08/01/19 for alcohol withdrawal sx management did well with librium detox regimen no complication through out the detox regimen seen by psychiatrist no medical intervention alert oriented x 3 feeling better prefers one day early discharge to home caring for daughter agrees to return 08/06/19 for [facility] admission alert oriented x 3 cardiac S1S2 regular rate rhythm respiratory wheezing on right lower lob encourage no cigarette smoking breathing exercise take medications as scheduled abdomen soft no rebound tenderness - Physical Exam Results Vital Signs: Vital Signs Temperature 97.4 F L 08/05/19 09:09 Pulse Rate 89 08/05/19 09:09 Respiratory Rate 17 08/05/19 09:09 Blood Pressure 103/76 08/05/19 09:09 O2 Sat by Pulse Oximetry (%) 96 08/05/19 04:00 Pertinent Admission Physical Exam Findings: alcohol withdrawal sx Laboratory Last Values WBC 10.6 K/mm3 (4.0-10.0) H 08/02/19 08:00 RBC 3.46 M/mm3 (3.60-5.2) L 08/02/19 08:00 Hgb 11.7 GM/dL (10.7-15.3) 08/02/19 08:00 Hct 34.7 % (32.4-45.2) 08/02/19 08:00 MCV 100.3 fl (80-96) H 08/02/19 08:00 MCH 33.8 pg (25.7-33.7) H 08/02/19 08:00 MCHC 33.6 g/dl (32.0-36.0) 08/02/19 08:00 RDW 12.9 % (11.6-15.6) 08/02/19 08:00 Plt Count 242 K/MM3 (134-434) 08/02/19 08:00 MPV 8.4 fl (7.5-11.1) 08/02/19 08:00 Sodium 143 mmol/L (136-145) 08/02/19 08:00 Potassium 3.9 mmol/L (3.5-5.1) 08/04/19 09:00 Chloride 108 mmol/L (98-107) H 08/02/19 08:00 Carbon Dioxide 24 mmol/L (21-32) 08/02/19 08:00 Anion Gap 12 MMOL/L (8-16) 08/02/19 08:00 BUN 10.0 mg/dL (7-18) 08/02/19 08:00 Creatinine 0.7 mg/dL (0.55-1.3) 08/02/19 08:00 Est GFR (CKD-EPI)AfAm 117.91 08/02/19 08:00 Est GFR (CKD-EPI)NonAf 101.74 08/02/19 08:00 Random Glucose 99 mg/dL (74-106) 08/02/19 08:00 Calcium 9.1 mg/dL (8.5-10.1) 08/02/19 08:00 Total Bilirubin 0.3 mg/dL (0.2-1) 08/02/19 08:00 AST 13 U/L (15-37) L 08/02/19 08:00 ALT 15 U/L (13-61) 08/02/19 08:00 Alkaline Phosphatase 81 U/L (45-117) 08/02/19 08:00 Total Protein 6.3 g/dl (6.4-8.2) L 08/02/19 08:00 Albumin 3.2 g/dl (3.4-5.0) L 08/02/19 08:00 POC Urine HCG, Qual Negative 08/01/19 18:03 lab noted patient agrees to returning to her [facility] for prednison follow up - Treatment Hospital Course: Detox Protocol Followed, Detoxed Safely, Responded well, Discharged Condition Good, Rehab Referral Accepted Patient has Accepted a Re[facility] Referral to: [facility] - Medication Discharge Medications: Ambulatory Orders Quetiapine Fumarate [Seroquel] 100 mg PO HS #30 tablet 04/30/19 Gabapentin 300 mg PO BID 08/01/19 - Diagnosis (1) COPD (chronic obstructive pulmonary disease) Status: Chronic Qualifiers: COPD type: emphysema Emphysema type: unspecified Qualified Code(s): J43.9 - Emphysema, unspecified (2) Alcohol dependence with uncomplicated withdrawal Status: Acute (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
[2019-08-05] MEDS: PRENATAL VITAMINS W/ FOLIC ACID TABLET (FP) PO SCH (09:59)
[2019-08-05] MEDS: predniSONE 20 MG TABLET (UD) PO SCH (09:59)
[2019-08-05] MEDS: POTASSIUM CHLORIDE TABS 20 MEQ TABLET.ER (FP) PO SCH (09:59)
[2019-08-05] MEDS: GABAPENTIN 300 MG CAPSULE (FP) PO SCH (09:59)
[2019-08-05] MEDS: NICOTINE 14 MG/24 HOURS TOPICAL PATCH TD SCH (10:00)
[2019-08-06] MEDS ORDERED: chlordiazePOXIDE HCL 10 MG CAPSULE PO ONE (05:00)
[2019-08-07] MEDS ORDERED: METHADONE 40 MG, METHADONE 20 MG PO SCH (06:00)
[2019-08-07] MEDS ORDERED: METHADONE HCL 10 MG TABLET PO ONE (06:00)
== END 2019-08-05 10:14 | disposition home or self-care (01) | DRG 773 ==
LOC: YASAS 14:45 → Y3N 19:19
PROVIDERS: ADMIT Surgery; ATTEND Surgery
PROC: HZ2ZZZZ Detoxification Services for Substance Abuse Treatment (ICD-10-PCS; principal; 2019-08-01)
DX: F10.230 Alcohol dependence with withdrawal, uncomplicated (principal); F11.20 Opioid dependence, uncomplicated; F14.20 Cocaine dependence, uncomplicated; F12.20 Cannabis dependence, uncomplicated; F17.213 Nicotine dependence, cigarettes, with withdrawal; F19.24 Other psychoactive substance dependence with psychoactive substance-induced mood disorder; J43.9 Emphysema, unspecified; E87.6 Hypokalemia; H55.00 Unspecified nystagmus; R06.2 Wheezing; R94.31 Abnormal electrocardiogram [ECG] [EKG]; Z59.0 Homelessness
CPT/HCPCS: 36415; 80053; 81025; 84132; 85027; 94640

== ENCOUNTER 2021-08-15 12:28 | Inpatient (IN) | payer OTHER ==
[2021-08-15 12:59] VITALS: BMI 20.5
[2021-08-15] MEDS ORDERED: ACETAMINOPHEN 325 MG TABLET (FP) PO PRN (14:30)
[2021-08-15] MEDS ORDERED: LOPERAMIDE HCL 2 MG CAPSULE PO PRN (14:30)
[2021-08-15] MEDS ORDERED: IBUPROFEN 400 MG TABLET (FP) PO PRN (14:30)
[2021-08-15] MEDS ORDERED: MAGNESIUM CITRATE 300 ML BOTTLE PO PRN (14:30)
[2021-08-15] MEDS ORDERED: MAGNESIUM HYDROX 2400MG/30ML ORAL SUSPENSION 30 ML CUP PO PRN (14:30)
[2021-08-15] MEDS ORDERED: MAG HYDROX/AL HYDROX/SIMETH 30 ML UNIT-DOSE CUP PO PRN (14:30)
[2021-08-15] MEDS ORDERED: NICOTINE 10 MG CARTRIDGE (INHALER) IH PRN (14:30)
[2021-08-15] MEDS ORDERED: guaiFENesin 200 MG/10 ML 10 ML UNIT-DOSE CUPS PO PRN (14:30)
[2021-08-15] MEDS ORDERED: P-EPHED 60MG/TRIPROLIDI 2.5MG TABLET PO PRN (14:30)
[2021-08-15 17:11] LABS: HEMATOCRIT 37.3 % (32.4-45.2); MCH 34.2 pg (25.7-33.7); MCHC 34.7 g/dl (32.0-36.0); MEAN CELL VOLUME 98.3 fl (80-96); MEAN PLT VOLUME 7.7 fl (7.5-11.1); PLATELET COUNT 251 10^3/uL (134-434); RDW 12.8 % (11.6-15.6)
[2021-08-15 17:30] LABS: ALBUMIN 3.7 g/dl (3.4-5.0); BLOOD UREA NITROGEN 19.2 mg/dL (7-18); CALCIUM 9.4 mg/dL (8.5-10.1)
[2021-08-15 17:34] LABS: BILIRUBIN,TOTAL 0.3 mg/dL (0.2-1); TOT PROT 7.1 g/dl (6.4-8.2)
[2021-08-15] MEDS ORDERED: hydrOXYzine PAMOATE 25 MG CAPSULE (FP) PO SCH (18:00)
[2021-08-15] MEDS: MELATONIN 5 MG TABLETS PO SCH (23:43)
[2021-08-15] MEDS: THIAMINE HCL 100 MG TABLET (FP) PO SCH (23:43)
[2021-08-16] MEDS ORDERED: diazePAM 5 MG TABLET PO PRN (09:15)
[2021-08-16] MEDS ORDERED: methaDONE HCL 10 MG TABLET (FOR DETOX USE ONLY) PO ONE (09:15)
[2021-08-16] MEDS ORDERED: cloNIDine HCL 0.1 MG TABLET PO PRN (09:15)
[2021-08-16] MEDS: diazePAM 5 MG TABLET PO SCH ×3 (10:20→22:43)
[2021-08-16] MEDS: NICOTINE 7 MG/24 HOURS TOPICAL PATCH TD SCH (10:25)
[2021-08-16] MEDS: THIAMINE HCL 100 MG TABLET (FP) PO SCH (22:43)
[2021-08-16] MEDS: MELATONIN 5 MG TABLETS PO SCH (22:44)
[2021-08-17] MEDS: diazePAM 5 MG TABLET PO SCH ×4 (06:19→22:24)
[2021-08-17] MEDS ORDERED: methaDONE HCL 10 MG TABLET (FOR DETOX USE ONLY) ONE (09:01)
[2021-08-17] MEDS: NICOTINE 7 MG/24 HOURS TOPICAL PATCH TD SCH (10:22)
[2021-08-17 15:45] LABS: EPI CELLS 36 /uL (0-25.1); HYALINE CASTS 1 /uL (0-3.1); PH,URINE 7.5 (5.0-8.0); URINE APPEARANCE CLEAR; URINE BILIRUBIN NEGATIVE (NEGATIVE); URINE COLOR YELLOW; URINE GLUCOSE (UA) NEGATIVE (NEGATIVE); URINE KETONE NEGATIVE (NEGATIVE); URINE LEUK ESTERASE NEGATIVE (NEGATIVE); URINE NITRITE POSITIVE (NEGATIVE); URINE PROTEIN NEGATIVE (NEGATIVE); URINE RBC 11 /uL (0-23.9); URINE UROBILINOGEN 0.2 mg/dL (0.2-1.0); URINE WBC 48 /uL (0-25.8)
[2021-08-17 16:52] LABS: URINE BACTERIA 883 /uL (0-1359)
[2021-08-17] MEDS: THIAMINE HCL 100 MG TABLET (FP) PO SCH (22:24)
[2021-08-17] MEDS: MELATONIN 5 MG TABLETS PO SCH (22:24)
[2021-08-18] MEDS: diazePAM 5 MG TABLET PO SCH ×3 (05:42→23:12)
[2021-08-18] MEDS ORDERED: methaDONE HCL 10 MG TABLET (FOR DETOX USE ONLY) PO ONE (10:00)
[2021-08-18] MEDS: NICOTINE 7 MG/24 HOURS TOPICAL PATCH TD SCH (11:14)
[2021-08-18] MEDS: hydrOXYzine PAMOATE 25 MG CAPSULE (FP) PO PRN (18:11)
[2021-08-18] MEDS: MELATONIN 5 MG TABLETS PO SCH (22:25)
[2021-08-18] MEDS: THIAMINE HCL 100 MG TABLET (FP) PO SCH (22:25)
[2021-08-19] MEDS: diazePAM 5 MG TABLET PO SCH ×2 (06:12→17:34)
[2021-08-19] MEDS ORDERED: methaDONE HCL 10 MG TABLET (FOR DETOX USE ONLY) ONE (09:01)
[2021-08-19] MEDS: NICOTINE 7 MG/24 HOURS TOPICAL PATCH TD SCH (10:10)
[2021-08-19] MEDS: THIAMINE HCL 100 MG TABLET (FP) PO SCH (22:29)
[2021-08-19] MEDS: MELATONIN 5 MG TABLETS PO SCH (22:29)
[2021-08-20] MEDS ORDERED: diazePAM 5 MG TABLET PO ONE (06:00)
[2021-08-20] MEDS ORDERED: methaDONE HCL 10 MG TABLET (FOR DETOX USE ONLY) PO ONE (10:00)
[2021-08-20] MEDS: NICOTINE 7 MG/24 HOURS TOPICAL PATCH TD SCH (10:30)
[2021-08-20] MEDS: MELATONIN 5 MG TABLETS PO SCH (22:37)
[2021-08-20] MEDS: THIAMINE HCL 100 MG TABLET (FP) PO SCH (22:37)
[2021-08-21] MEDS: hydrOXYzine PAMOATE 25 MG CAPSULE (FP) PO PRN (06:34)
[2021-08-21 10:13] VITALS: BP 124/77; PULSE 72; TEMP 96.8
[2021-08-21] MEDS: NICOTINE 7 MG/24 HOURS TOPICAL PATCH TD SCH (11:17)
[2021-08-22 11:16] LABS: EPI CELLS 13 /uL (0-25.1); HYALINE CASTS 0 /uL (0-3.1); PH,URINE 8.5 (5.0-8.0); URINE APPEARANCE CLEAR; URINE BACTERIA 1075 /uL (0-1359); URINE BILIRUBIN NEGATIVE (NEGATIVE); URINE COLOR YELLOW; URINE GLUCOSE (UA) NEGATIVE (NEGATIVE); URINE KETONE NEGATIVE (NEGATIVE); URINE LEUK ESTERASE TRACE (NEGATIVE); URINE NITRITE NEGATIVE (NEGATIVE); URINE PROTEIN NEGATIVE (NEGATIVE); URINE RBC 1 /uL (0-23.9); URINE UROBILINOGEN 0.2 mg/dL (0.2-1.0); URINE WBC 20 /uL (0-25.8)
== END 2021-08-21 09:33 | disposition home or self-care (01) | DRG 773 ==
LOC: YASAS 12:28 → Y3N 14:13
PROVIDERS: ADMIT Allergy & Immunology; ATTEND Allergy & Immunology
PROC: HZ2ZZZZ Detoxification Services for Substance Abuse Treatment (ICD-10-PCS; principal; 2021-08-15)
DX: F11.23 Opioid dependence with withdrawal (principal); F10.230 Alcohol dependence with withdrawal, uncomplicated; F14.20 Cocaine dependence, uncomplicated; F12.20 Cannabis dependence, uncomplicated; F17.210 Nicotine dependence, cigarettes, uncomplicated; J43.9 Emphysema, unspecified; N39.0 Urinary tract infection, site not specified; R79.89 Other specified abnormal findings of blood chemistry; Z86.59 Personal history of other mental and behavioral disorders; Z86.79 Personal history of other diseases of the circulatory system; Z59.0 Homelessness
CPT/HCPCS: 36415; 80053; 81003; 85027; 86780; C9803; U0003; U0005

== ENCOUNTER 2021-10-01 16:33 | Inpatient (IN) | payer OTHER ==
[2021-10-01 17:02] VITALS: BMI 22.6
[2021-10-01 19:22] LABS: ALBUMIN 3.9 g/dl (3.4-5.0); BLOOD UREA NITROGEN 17.4 mg/dL (7-18); CALCIUM 9.5 mg/dL (8.5-10.1)
[2021-10-01 19:25] LABS: CREATININE 0.9 mg/dL (0.55-1.3)
[2021-10-01 19:26] LABS: BASO % 0.6 % (0-2.0); EOS % 0.3 % (0-4.5); HEMATOCRIT 39.8 % (32.4-45.2); HEMOGLOBIN 13.6 GM/dL (10.7-15.3); LYMPH % 34.4 % (8-40); MCHC 34.2 g/dl (32.0-36.0); MEAN CELL VOLUME 99.2 fl (80-96); MEAN PLT VOLUME 7.8 fl (7.5-11.1); MONO % 7.7 % (3.8-10.2); PLATELET COUNT 267 10^3/uL (134-434); RBC 4.01 M/mm3 (3.60-5.2); RDW 13.2 % (11.6-15.6); WHITE BLOOD COUNT 6.8 K/mm3 (4.0-10.0)
[2021-10-01 19:27] LABS: BILIRUBIN,TOTAL 0.4 mg/dL (0.2-1); TOT PROT 7.4 g/dl (6.4-8.2)
[2021-10-01] MEDS ORDERED: IBUPROFEN 400 MG TABLET (FP) PO ONE ×2 (23:05→23:14)
[2021-10-02] MEDS ORDERED: methaDONE HCL 10 MG TABLET ONE ×2 (04:02→09:34)
[2021-10-02 07:20] LABS: BASO % 0.5 % (0-2.0); EOS % 0.7 % (0-4.5); HEMATOCRIT 35.8 % (32.4-45.2); HEMOGLOBIN 12.2 GM/dL (10.7-15.3); LYMPH % 13.2 % (8-40); MCH 33.9 pg (25.7-33.7); MEAN CELL VOLUME 99.7 fl (80-96); MEAN PLT VOLUME 7.7 fl (7.5-11.1); NEUT % 80.6 % (42.8-82.8); PLATELET COUNT 238 10^3/uL (134-434); RBC 3.59 M/mm3 (3.60-5.2); WHITE BLOOD COUNT 12.1 K/mm3 (4.0-10.0)
[2021-10-02 07:43] LABS: CHOLESTEROL 165 mg/dL (50-200); TRIGLYCERIDES 48 mg/dL (0-150)
[2021-10-02 07:44] LABS: LDL CHOLESTEROL (ONLY SJRH) 60 mg/dL (5-100)
[2021-10-02 07:47] LABS: HDL CHOLESTEROL 92 mg/dL (40-60)
[2021-10-02] MEDS ORDERED: methaDONE HCL 10 MG TABLET PO ONE (09:24)
[2021-10-02] MEDS ORDERED: cloNIDine HCL 0.1 MG TABLET PO PRN (09:24)
[2021-10-02] MEDS ORDERED: FOLIC ACID 1 MG TABLET (FP) ONE (09:36)
[2021-10-02] MEDS ORDERED: ENOXAPARIN NA (PORCINE) 40 MG/0.4 ML DISP.SYRIN SQ ONE (09:36)
[2021-10-02] MEDS ORDERED: THIAMINE HCL 100 MG TABLET (FP) ONE (09:37)
[2021-10-02] MEDS ORDERED: FOLIC ACID 1 MG TABLET (FP) PO SCH (10:00)
[2021-10-02] MEDS ORDERED: THIAMINE HCL 100 MG TABLET (FP) PO SCH (10:00)
[2021-10-02] MEDS ORDERED: ENOXAPARIN NA (PORCINE) 40 MG/0.4 ML DISP.SYRIN SQ SCH (10:00)
[2021-10-02] MEDS ORDERED: NICOTINE 14 MG/24 HOURS TOPICAL PATCH TD SCH (10:00)
[2021-10-02 10:06] VITALS: BP 122/67; PULSE 63; TEMP 98
[2021-10-02 10:20] LABS: EPI CELLS 31 /uL (0-25.1); HYALINE CASTS 1 /uL (0-3.1); PH,URINE 7.5 (5.0-8.0); URINE APPEARANCE CLEAR; URINE BACTERIA 238 /uL (0-1359); URINE BILIRUBIN NEGATIVE (NEGATIVE); URINE COLOR YELLOW; URINE GLUCOSE (UA) NEGATIVE (NEGATIVE); URINE KETONE NEGATIVE (NEGATIVE); URINE LEUK ESTERASE TRACE (NEGATIVE); URINE NITRITE NEGATIVE (NEGATIVE); URINE PROTEIN NEGATIVE (NEGATIVE); URINE RBC 7 /uL (0-23.9); URINE WBC 29 /uL (0-25.8)
[2021-10-02 10:46] LABS: URINE BARBITURATES NEGATIVE (NEGATIVE); URINE BENZODIAZEPINES NEGATIVE (NEGATIVE)
[2021-10-02 10:47] LABS: PHENCYCLIDINE,URINE NEGATIVE (NEGATIVE)
[2021-10-02 11:01] LABS: COCAINE, UR POSITIVE (NEGATIVE); METHADONE, UR POSITIVE (NEGATIVE); OPIATES, URI POSITIVE (NEGATIVE); URINE AMPHETAMINES NEGATIVE (NEGATIVE)
[2021-10-04] MEDS ORDERED: methaDONE HCL 10 MG TABLET PO ONE (10:00)
[2021-10-06] MEDS ORDERED: methaDONE HCL 10 MG TABLET PO ONE (10:00)
== END 2021-10-02 10:30 | disposition other institution (70) | DRG 204 ==
LOC: JER 16:33 → JERBED 23:48
PROVIDERS: ADMIT Internal Medicine; ATTEND Internal Medicine
DX: R55 Syncope and collapse (principal); R00.1 Bradycardia, unspecified; F10.10 Alcohol abuse, uncomplicated; F11.10 Opioid abuse, uncomplicated; F32.A Depression, unspecified; F17.210 Nicotine dependence, cigarettes, uncomplicated; Z86.73 Personal history of transient ischemic attack (TIA), and cerebral infarction without residual deficits
CPT/HCPCS: 36415; 70450-TC; 80053; 80061; 80307; 81003; 83036; 83735; 84100; 84484; 84703; 85025; 85027; 93005; 93010; 99285-25; C9803; U0003; U0005

== ENCOUNTER 2021-10-02 10:48 | Inpatient (IN) | payer OTHER ==
[2021-10-02 11:07] VITALS: BMI 21.9
[2021-10-02] MEDS ORDERED: MENTHOL/PHENOL 1 EACH UD MM PRN (13:50)
[2021-10-02] MEDS ORDERED: ACETAMINOPHEN 325 MG TABLET (FP) PO PRN (13:50)
[2021-10-02] MEDS ORDERED: ONDANSETRON *ODT* 4 MG TABLET SL PRN (13:50)
[2021-10-02] MEDS ORDERED: BISMUTH SUBSALICYLATE 524 MG/30 ML PO PRN (13:50)
[2021-10-02] MEDS ORDERED: NICOTINE POLACRILEX 2 MG GUM BUC PRN (13:50)
[2021-10-02] MEDS ORDERED: MAGNESIUM CITRATE 300 ML BOTTLE PO PRN (13:50)
[2021-10-02] MEDS ORDERED: methaDONE HCL 10 MG TABLET (FOR DETOX USE ONLY) PO ONE (13:50)
[2021-10-02] MEDS ORDERED: IBUPROFEN 400 MG TABLET (FP) PO PRN (13:50)
[2021-10-02] MEDS ORDERED: MAG HYDROX/AL HYDROX/SIMETH 30 ML UNIT-DOSE CUP PO PRN (13:50)
[2021-10-02] MEDS ORDERED: MAGNESIUM HYDROX 2400MG/30ML ORAL SUSPENSION 30 ML CUP PO PRN (13:50)
[2021-10-02] MEDS ORDERED: NICOTINE 10 MG CARTRIDGE (INHALER) IH PRN (13:50)
[2021-10-02] MEDS ORDERED: cloNIDine HCL 0.1 MG TABLET PO PRN (13:50)
[2021-10-02] MEDS: hydrOXYzine PAMOATE 25 MG CAPSULE (FP) PO SCH ×3 (14:37→22:10)
[2021-10-02] MEDS ORDERED: MELATONIN 5 MG TABLETS PO SCH (22:00)
[2021-10-02] MEDS: diazePAM 5 MG TABLET PO PRN (22:09)
[2021-10-02] MEDS: THIAMINE HCL 100 MG TABLET (FP) PO SCH (22:09)
[2021-10-03] MEDS: hydrOXYzine PAMOATE 25 MG CAPSULE (FP) PO SCH ×5 (05:41→22:33)
[2021-10-03] MEDS ORDERED: methaDONE HCL 10 MG TABLET (FOR DETOX USE ONLY) ONE (09:36)
[2021-10-03] MEDS: PRENATAL VITAMINS W/ FOLIC ACID TABLET (FP) PO SCH (10:32)
[2021-10-03] MEDS: diazePAM 5 MG TABLET PO PRN ×2 (10:34→22:35)
[2021-10-03] MEDS: NICOTINE 21 MG/24 HOURS TOPICAL PATCH TD SCH (10:37)
[2021-10-03] MEDS: THIAMINE HCL 100 MG TABLET (FP) PO SCH (22:33)
[2021-10-03] MEDS: QUEtiapine FUMARATE 100 MG TABLET (FP) PO SCH (22:33)
[2021-10-04] MEDS: hydrOXYzine PAMOATE 25 MG CAPSULE (FP) PO SCH ×5 (06:06→22:00)
[2021-10-04] MEDS ORDERED: methaDONE HCL 10 MG TABLET (FOR DETOX USE ONLY) PO ONE (10:00)
[2021-10-04] MEDS: PRENATAL VITAMINS W/ FOLIC ACID TABLET (FP) PO SCH (10:09)
[2021-10-04] MEDS: METHOCARBAMOL 500 MG TABLET PO PRN (10:09)
[2021-10-04] MEDS: NICOTINE 21 MG/24 HOURS TOPICAL PATCH TD SCH (10:10)
[2021-10-04] MEDS: diazePAM 5 MG TABLET PO PRN (11:15)
[2021-10-04 15:02] LABS: EPI CELLS 28 /uL (0-25.1); HYALINE CASTS 2 /uL (0-3.1); PH,URINE 6.5 (5.0-8.0); URINE APPEARANCE CLEAR; URINE BACTERIA 642 /uL (0-1359); URINE BILIRUBIN NEGATIVE (NEGATIVE); URINE COLOR YELLOW; URINE GLUCOSE (UA) NEGATIVE (NEGATIVE); URINE KETONE NEGATIVE (NEGATIVE); URINE LEUK ESTERASE 1+ (NEGATIVE); URINE NITRITE NEGATIVE (NEGATIVE); URINE PROTEIN NEGATIVE (NEGATIVE); URINE RBC 8 /uL (0-23.9); URINE UROBILINOGEN 0.2 mg/dL (0.2-1.0); URINE WBC 60 /uL (0-25.8)
[2021-10-04] MEDS: THIAMINE HCL 100 MG TABLET (FP) PO SCH (22:00)
[2021-10-04] MEDS: QUEtiapine FUMARATE 100 MG TABLET (FP) PO SCH (22:00)
[2021-10-05] MEDS: hydrOXYzine PAMOATE 25 MG CAPSULE (FP) PO SCH ×5 (06:17→22:25)
[2021-10-05] MEDS ORDERED: methaDONE HCL 10 MG TABLET (FOR DETOX USE ONLY) ONE (09:31)
[2021-10-05] MEDS: PRENATAL VITAMINS W/ FOLIC ACID TABLET (FP) PO SCH (10:37)
[2021-10-05] MEDS: METHOCARBAMOL 500 MG TABLET PO PRN (10:39)
[2021-10-05] MEDS: NICOTINE 21 MG/24 HOURS TOPICAL PATCH TD SCH (10:40)
[2021-10-05] MEDS: SULFAMETHOXAZOLE/TRIMETHOPRIM 800MG/160MG D.S. TABLET PO SCH ×2 (12:53→22:25)
[2021-10-05] MEDS: THIAMINE HCL 100 MG TABLET (FP) PO SCH (22:25)
[2021-10-05] MEDS: QUEtiapine FUMARATE 100 MG TABLET (FP) PO SCH (22:25)
[2021-10-06] MEDS: hydrOXYzine PAMOATE 25 MG CAPSULE (FP) PO SCH ×5 (06:51→22:07)
[2021-10-06] MEDS ORDERED: methaDONE HCL 10 MG TABLET (FOR DETOX USE ONLY) PO ONE (10:00)
[2021-10-06 10:19] LABS: BASO % 1.4 % (0-2.0); EOS % 2.3 % (0-4.5); HEMATOCRIT 36.4 % (32.4-45.2); HEMOGLOBIN 12.4 GM/dL (10.7-15.3); MCH 33.9 pg (25.7-33.7); MEAN CELL VOLUME 99.6 fl (80-96); MEAN PLT VOLUME 7.8 fl (7.5-11.1); MONO % 10.2 % (3.8-10.2); NEUT % 52.1 % (42.8-82.8); PLATELET COUNT 247 10^3/uL (134-434); RBC 3.66 M/mm3 (3.60-5.2); RDW 13.7 % (11.6-15.6); WHITE BLOOD COUNT 6.3 K/mm3 (4.0-10.0)
[2021-10-06] MEDS: PRENATAL VITAMINS W/ FOLIC ACID TABLET (FP) PO SCH (10:20)
[2021-10-06] MEDS: SULFAMETHOXAZOLE/TRIMETHOPRIM 800MG/160MG D.S. TABLET PO SCH ×2 (10:20→22:07)
[2021-10-06] MEDS: METHOCARBAMOL 500 MG TABLET PO PRN ×2 (10:20→17:29)
[2021-10-06] MEDS: ACETAMINOPHEN 325 MG TABLET (FP) PO PRN ×2 (10:22→17:29)
[2021-10-06] MEDS: NICOTINE 21 MG/24 HOURS TOPICAL PATCH TD SCH (10:22)
[2021-10-06] MEDS: THIAMINE HCL 100 MG TABLET (FP) PO SCH (22:07)
[2021-10-06] MEDS: QUEtiapine FUMARATE 100 MG TABLET (FP) PO SCH (22:07)
[2021-10-07] MEDS: hydrOXYzine PAMOATE 25 MG CAPSULE (FP) PO SCH ×2 (05:10→10:48)
[2021-10-07 09:15] VITALS: BP 129/61; PULSE 85; TEMP 97.8
[2021-10-07] MEDS: PRENATAL VITAMINS W/ FOLIC ACID TABLET (FP) PO SCH (10:47)
[2021-10-07] MEDS: SULFAMETHOXAZOLE/TRIMETHOPRIM 800MG/160MG D.S. TABLET PO SCH (10:48)
[2021-10-07] MEDS: NICOTINE 21 MG/24 HOURS TOPICAL PATCH TD SCH (10:49)
== END 2021-10-07 10:58 | disposition home or self-care (01) | DRG 773 ==
LOC: YASAS 10:48 → Y6N 13:54
PROVIDERS: ADMIT Allergy & Immunology; ATTEND Allergy & Immunology
PROC: HZ2ZZZZ Detoxification Services for Substance Abuse Treatment (ICD-10-PCS; principal; 2021-10-02)
DX: F11.23 Opioid dependence with withdrawal (principal); F10.230 Alcohol dependence with withdrawal, uncomplicated; F14.20 Cocaine dependence, uncomplicated; F12.20 Cannabis dependence, uncomplicated; F17.210 Nicotine dependence, cigarettes, uncomplicated; F20.9 Schizophrenia, unspecified; F31.9 Bipolar disorder, unspecified; F19.282 Other psychoactive substance dependence with psychoactive substance-induced sleep disorder; F19.24 Other psychoactive substance dependence with psychoactive substance-induced mood disorder; M17.0 Bilateral primary osteoarthritis of knee; Z59.00 Homelessness unspecified; Z91.013 Allergy to seafood
CPT/HCPCS: 36415; 81003; 81025; 85025; 86780; C9803; U0003; U0005

== ENCOUNTER 2023-09-19 13:14 | Inpatient (IN) | payer OTHER ==
[2023-09-19 15:35] VITALS: BMI 29.5
[2023-09-19] MEDS ORDERED: IBUPROFEN 400 MG TABLET (FP) PO PRN (18:49)
[2023-09-19] MEDS ORDERED: MAGNESIUM HYDROX 2400MG/30ML ORAL SUSPENSION 30 ML CUP PO PRN (18:49)
[2023-09-19] MEDS ORDERED: IBUPROFEN 600 MG TABLET (FP) PO PRN (18:49)
[2023-09-19] MEDS ORDERED: guaiFENesin 600 MG TABLET.ER (FP) PO PRN (18:49)
[2023-09-19] MEDS ORDERED: DICYCLOMINE HCL 10 MG CAPSULE PO PRN (18:49)
[2023-09-19] MEDS ORDERED: methaDONE HCL 10 MG TABLET (FOR DETOX USE ONLY) PO ONE (18:49)
[2023-09-19] MEDS ORDERED: NALOXONE HCL 0.4 MG/ML VIAL IM PRN (18:49)
[2023-09-19] MEDS ORDERED: POLYETHYLENE GLYCOL (HEALTHYLAX) 3350 17 GM PACKET PO PRN (18:49)
[2023-09-19] MEDS ORDERED: MAG HYDROX/AL HYDROX/SIMETH 30 ML UNIT-DOSE CUP PO PRN (18:49)
[2023-09-19] MEDS ORDERED: NALOXONE HCL (KLOXXADO) 8 MG SPRAY NS PRN (18:49)
[2023-09-19] MEDS ORDERED: ONDANSETRON *ODT* 4 MG TABLET SL PRN (18:49)
[2023-09-19] MEDS ORDERED: BISMUTH SUBSALICYLATE 524 MG/30 ML PO PRN (18:49)
[2023-09-19] MEDS ORDERED: BENZOCAINE/MENTHOL (CHLORASEPTIC ) LOZENGE MM PRN (18:49)
[2023-09-19] MEDS ORDERED: chlordiazePOXIDE HCL 25 MG CAPSULE PO PRN (18:49)
[2023-09-19] MEDS ORDERED: cloNIDine HCL 0.1 MG TABLET PO PRN (18:49)
[2023-09-19] MEDS ORDERED: NICOTINE POLACRILEX 2 MG GUM BUC PRN (18:49)
[2023-09-19] MEDS ORDERED: BENZONATATE 200 MG CAPSULE PO PRN (18:49)
[2023-09-19] MEDS ORDERED: LOPERAMIDE HCL 2 MG CAPSULE PO PRN (18:49)
[2023-09-19] MEDS ORDERED: ACETAMINOPHEN 325 MG TABLET (FP) PO PRN (18:49)
[2023-09-19] MEDS ORDERED: methaDONE HCL 10 MG TABLET (FOR DETOX USE ONLY) ONE (19:12)
[2023-09-19] MEDS: MELATONIN 5 MG TABLETS PO SCH (23:34)
[2023-09-19] MEDS: THIAMINE HCL 100 MG TABLET (FP) PO SCH (23:34)
[2023-09-19] MEDS: chlordiazePOXIDE HCL 25 MG CAPSULE PO SCH (23:36)
[2023-09-20] MEDS: chlordiazePOXIDE HCL 25 MG CAPSULE PO SCH ×4 (07:21→22:59)
[2023-09-20] MEDS: PRENATAL VITAMINS W/ FOLIC ACID TABLET (FP) PO SCH (10:33)
[2023-09-20] MEDS: LISINOPRIL 5 MG TABLET PO SCH (10:34)
[2023-09-20] MEDS: METHOCARBAMOL 500 MG TABLET PO PRN (10:34)
[2023-09-20] MEDS: NICOTINE 14 MG/24 HOURS TOPICAL PATCH TD SCH (10:40)
[2023-09-20 12:26] LABS: CHLORIDE 108 mmol/L (98-107); POTASSIUM 3.9 mmol/L (3.5-5.1); SODIUM 141 mmol/L (136-145)
[2023-09-20 12:31] LABS: HEMOGLOBIN 12.7 GM/dL (10.7-15.3); MCH 31.7 pg (25.7-33.7); MCHC 33.6 g/dl (32.0-36.0); MEAN CELL VOLUME 94.4 fl (80-96); MEAN PLT VOLUME 8.2 fl (7.5-11.1); PLATELET COUNT 274 10^3/uL (134-434); RBC 4.02 M/mm3 (3.60-5.2); WHITE BLOOD COUNT 5.1 K/mm3 (4.0-10.0)
[2023-09-20 12:34] LABS: ALBUMIN 2.9 g/dl (3.4-5.0); ANION GAP 4 mmol/L (4-13); CO2 29 mmol/L (21-32); GLUCOSE,RANDOM 87 mg/dL (74-106)
[2023-09-20 12:35] LABS: BLOOD UREA NITROGEN 7.6 mg/dL (7-18)
[2023-09-20 12:37] LABS: CREATININE 0.5 mg/dL (0.55-1.3); SGPT/ALT 10 U/L (13-61)
[2023-09-20 12:38] LABS: SGOT/AST 13 U/L (15-37)
[2023-09-20 12:39] LABS: BILIRUBIN,TOTAL 0.6 mg/dL (0.2-1)
[2023-09-20 12:40] LABS: ALK PHOS 89 U/L (45-117)
[2023-09-20] MEDS: THIAMINE HCL 100 MG TABLET (FP) PO SCH (22:58)
[2023-09-20] MEDS: MELATONIN 5 MG TABLETS PO SCH (22:58)
[2023-09-21] MEDS: chlordiazePOXIDE HCL 25 MG CAPSULE PO SCH ×4 (05:58→22:47)
[2023-09-21] MEDS: LISINOPRIL 5 MG TABLET PO SCH (09:52)
[2023-09-21] MEDS: PRENATAL VITAMINS W/ FOLIC ACID TABLET (FP) PO SCH (09:52)
[2023-09-21] MEDS: METHOCARBAMOL 500 MG TABLET PO PRN (09:53)
[2023-09-21] MEDS ORDERED: methaDONE HCL 10 MG TABLET (FOR DETOX USE ONLY) PO ONE (10:00)
[2023-09-21] MEDS: NICOTINE 14 MG/24 HOURS TOPICAL PATCH TD SCH (10:58)
[2023-09-21] MEDS ORDERED: QUEtiapine FUMARATE 100 MG TABLET (FP) PO SCH (22:00)
[2023-09-21] MEDS: MELATONIN 5 MG TABLETS PO SCH (22:47)
[2023-09-21] MEDS: THIAMINE HCL 100 MG TABLET (FP) PO SCH (22:47)
[2023-09-22] MEDS ORDERED: chlordiazePOXIDE HCL 10 MG CAPSULE PO PRN
[2023-09-22] MEDS: chlordiazePOXIDE HCL 10 MG CAPSULE PO SCH ×2 (05:41→10:26)
[2023-09-22 09:32] VITALS: RESP 18
[2023-09-22] MEDS: LISINOPRIL 5 MG TABLET PO SCH (10:25)
[2023-09-22] MEDS: METHOCARBAMOL 500 MG TABLET PO PRN (10:25)
[2023-09-22] MEDS: PRENATAL VITAMINS W/ FOLIC ACID TABLET (FP) PO SCH (10:25)
[2023-09-22] MEDS: NICOTINE 14 MG/24 HOURS TOPICAL PATCH TD SCH (10:30)
[2023-09-22 13:01] VITALS: BP 138/87; PULSE 74; TEMP 98
[2023-09-23] MEDS ORDERED: chlordiazePOXIDE HCL 10 MG CAPSULE PO SCH (05:00)
[2023-09-23] MEDS ORDERED: methaDONE HCL 10 MG TABLET (FOR DETOX USE ONLY) PO ONE (10:00)
[2023-09-24] MEDS ORDERED: chlordiazePOXIDE HCL 10 MG CAPSULE PO ONE (05:00)
== END 2023-09-22 13:35 | disposition left against medical advice (07) | DRG 770 ==
LOC: YASAS 13:14 → Y6N 19:56
PROVIDERS: ADMIT Allergy & Immunology; ATTEND Surgery
PROC: HZ2ZZZZ Detoxification Services for Substance Abuse Treatment (ICD-10-PCS; principal; 2023-09-19)
DX: F11.23 Opioid dependence with withdrawal (principal); F10.230 Alcohol dependence with withdrawal, uncomplicated; F14.20 Cocaine dependence, uncomplicated; F17.210 Nicotine dependence, cigarettes, uncomplicated; F19.282 Other psychoactive substance dependence with psychoactive substance-induced sleep disorder; F19.24 Other psychoactive substance dependence with psychoactive substance-induced mood disorder; J43.9 Emphysema, unspecified; M15.9 Polyosteoarthritis, unspecified; Z28.310 Unvaccinated for COVID-19; Z28.9 Immunization not carried out for unspecified reason
CPT/HCPCS: 36415; 80053; 80307; 81025; 85027; 86780; 87635; 93005; 93010

== ENCOUNTER 2023-11-13 14:57 | Inpatient (IN) | payer OTHER ==
[2023-11-13 15:36] VITALS: BMI 25.5
[2023-11-13] MEDS ORDERED: IBUPROFEN 400 MG TABLET (FP) PO PRN (17:00)
[2023-11-13] MEDS ORDERED: METHOCARBAMOL 500 MG TABLET PO PRN (17:00)
[2023-11-13] MEDS ORDERED: MAGNESIUM HYDROX 2400MG/30ML ORAL SUSPENSION 30 ML CUP PO PRN (17:00)
[2023-11-13] MEDS ORDERED: DICYCLOMINE HCL 10 MG CAPSULE PO PRN (17:00)
[2023-11-13] MEDS ORDERED: guaiFENesin 600 MG TABLET.ER (FP) PO PRN (17:00)
[2023-11-13] MEDS ORDERED: BENZONATATE 200 MG CAPSULE PO PRN (17:00)
[2023-11-13] MEDS ORDERED: ONDANSETRON *ODT* 4 MG TABLET SL PRN (17:00)
[2023-11-13] MEDS ORDERED: NALOXONE HCL 0.4 MG/ML VIAL IM PRN (17:00)
[2023-11-13] MEDS ORDERED: P-EPHED 60MG/TRIPROLIDI 2.5MG TABLET PO PRN (17:00)
[2023-11-13] MEDS ORDERED: NALOXONE HCL (KLOXXADO) 8 MG SPRAY NS PRN (17:00)
[2023-11-13] MEDS ORDERED: ACETAMINOPHEN 325 MG TABLET (FP) PO PRN (17:00)
[2023-11-13] MEDS ORDERED: BISMUTH SUBSALICYLATE 524 MG/30 ML PO PRN (17:00)
[2023-11-13] MEDS ORDERED: MAG HYDROX/AL HYDROX/SIMETH 30 ML UNIT-DOSE CUP PO PRN (17:00)
[2023-11-13] MEDS ORDERED: BENZOCAINE/MENTHOL (CHLORASEPTIC ) LOZENGE MM PRN (17:00)
[2023-11-13] MEDS ORDERED: LOPERAMIDE HCL 2 MG CAPSULE PO PRN (17:00)
[2023-11-13] MEDS ORDERED: AMMONIUM LACTATE 12% LOTION 225 GM BOTTLE TP PRN (17:00)
[2023-11-13] MEDS ORDERED: IBUPROFEN 600 MG TABLET (FP) PO PRN (17:00)
[2023-11-13] MEDS ORDERED: hydrOXYzine PAMOATE 25 MG CAPSULE (FP) PO PRN (17:00)
[2023-11-13] MEDS ORDERED: POLYETHYLENE GLYCOL (HEALTHYLAX) 3350 17 GM PACKET PO PRN (17:00)
[2023-11-13] MEDS ORDERED: HYDROCORTISONE 0.5% TOPICAL OINTMENT TUBE TP PRN (17:02)
[2023-11-13] MEDS ORDERED: TETRAHYDROZOLINE HCL EYE DROPS OU PRN (17:03)
[2023-11-13] MEDS ORDERED: cloNIDine HCL 0.1 MG TABLET PO PRN (17:03)
[2023-11-13] MEDS ORDERED: HYDROCORTISONE 0.5% TOPICAL CREAM 30 GM TUBE TP PRN (18:22)
[2023-11-13] MEDS ORDERED: methaDONE HCL 10 MG TABLET (FOR DETOX USE ONLY) PO ONE (21:00)
[2023-11-13] MEDS: THIAMINE HCL 100 MG TABLET (FP) PO SCH (21:44)
[2023-11-13] MEDS: MELATONIN 5 MG TABLETS PO SCH (21:44)
[2023-11-14] MEDS: PRENATAL VITAMINS W/ FOLIC ACID TABLET (FP) PO SCH (10:28)
[2023-11-14] MEDS: diazePAM 5 MG TABLET PO PRN ×2 (10:28→22:38)
[2023-11-14] MEDS: THIAMINE HCL 100 MG TABLET (FP) PO SCH (22:38)
[2023-11-14] MEDS: QUEtiapine FUMARATE 100 MG TABLET (FP) PO SCH (22:38)
[2023-11-14] MEDS: MELATONIN 5 MG TABLETS PO SCH (22:38)
[2023-11-15] MEDS ORDERED: methaDONE HCL 10 MG TABLET (FOR DETOX USE ONLY) PO ONE (10:00)
[2023-11-15] MEDS: diazePAM 5 MG TABLET PO PRN ×2 (10:21→17:28)
[2023-11-15] MEDS: PRENATAL VITAMINS W/ FOLIC ACID TABLET (FP) PO SCH (10:21)
[2023-11-15 10:37] LABS: CHLORIDE 106 mmol/L (98-107); POTASSIUM 4.3 mmol/L (3.5-5.1); SODIUM 140 mmol/L (136-145)
[2023-11-15 10:43] LABS: BLOOD UREA NITROGEN 8.7 mg/dL (7-18); GLUCOSE,RANDOM 75 mg/dL (74-106)
[2023-11-15 10:44] LABS: ANION GAP 4 mmol/L (4-13); CO2 30 mmol/L (21-32)
[2023-11-15 10:45] LABS: ALBUMIN 2.7 g/dl (3.4-5.0); CREATININE 0.5 mg/dL (0.55-1.3); SGOT/AST 10 U/L (15-37); SGPT/ALT 10 U/L (13-61)
[2023-11-15 10:47] LABS: BILIRUBIN,TOTAL 0.2 mg/dL (0.2-1)
[2023-11-15 10:48] LABS: ALK PHOS 83 U/L (45-117)
[2023-11-15 10:53] LABS: HEMATOCRIT 36.9 % (32.4-45.2); HEMOGLOBIN 12.3 GM/dL (10.7-15.3); MCH 31.6 pg (25.7-33.7); MCHC 33.3 g/dl (32.0-36.0); MEAN CELL VOLUME 94.9 fl (80-96); PLATELET COUNT 306 10^3/uL (134-434); RBC 3.89 M/mm3 (3.60-5.2); RDW 14.1 % (11.6-15.6); WHITE BLOOD COUNT 5.8 K/mm3 (4.0-10.0)
[2023-11-15 11:01] LABS: TOT PROT 6.1 g/dl (6.4-8.2)
[2023-11-15] MEDS: THIAMINE HCL 100 MG TABLET (FP) PO SCH (22:23)
[2023-11-15] MEDS: MELATONIN 5 MG TABLETS PO SCH (22:23)
[2023-11-15] MEDS: QUEtiapine FUMARATE 100 MG TABLET (FP) PO SCH (22:23)
[2023-11-16] MEDS: PRENATAL VITAMINS W/ FOLIC ACID TABLET (FP) PO SCH (09:42)
[2023-11-16] MEDS: MELATONIN 5 MG TABLETS PO SCH (22:37)
[2023-11-16] MEDS: QUEtiapine FUMARATE 100 MG TABLET (FP) PO SCH (22:37)
[2023-11-16] MEDS: THIAMINE HCL 100 MG TABLET (FP) PO SCH (22:37)
[2023-11-17 09:30] VITALS: RESP 18
[2023-11-17] MEDS ORDERED: methaDONE HCL 10 MG TABLET (FOR DETOX USE ONLY) PO ONE (10:00)
[2023-11-17] MEDS: PRENATAL VITAMINS W/ FOLIC ACID TABLET (FP) PO SCH (10:10)
[2023-11-17 13:58] VITALS: BP 110/73; PULSE 95; TEMP 97.1
== END 2023-11-17 13:20 | disposition home or self-care (01) | DRG 773 ==
LOC: YASAS 14:57 → Y3N 18:04
PROVIDERS: ADMIT Allergy & Immunology; ATTEND Surgery
PROC: HZ2ZZZZ Detoxification Services for Substance Abuse Treatment (ICD-10-PCS; principal; 2023-11-13)
DX: F11.23 Opioid dependence with withdrawal (principal); F10.230 Alcohol dependence with withdrawal, uncomplicated; F14.10 Cocaine abuse, uncomplicated; F12.20 Cannabis dependence, uncomplicated; F17.210 Nicotine dependence, cigarettes, uncomplicated; F19.24 Other psychoactive substance dependence with psychoactive substance-induced mood disorder; G47.00 Insomnia, unspecified; Z28.310 Unvaccinated for COVID-19; Z28.9 Immunization not carried out for unspecified reason
CPT/HCPCS: 36415; 80053; 80307; 81025; 85027; 86780; 87635